=== PATIENT | male | born 1960 | race Caucasian/White ===

== ENCOUNTER 2020-10-27 07:24 | Emergency (ER) | payer OTHER, SELFPAY ==
--- NOTE | ~2020-10-27 | XR_ITS ---
EXAMINATION: XR CHEST CLINICAL INFORMATION: Shortness of breath COMPARISON: Chest 04/26/2019 TECHNIQUE: Frontal view of the chest was obtained. FINDINGS: There is cardiomegaly. There is increased pulmonary vascularity suggestive of mild congestion. There are pacer electrodes in right atrium and right ventricle. No gross bony abnormality seen. XR/XR chest 1V IMPRESSION: Cardiomegaly. Mild pulmonary vascular congestion.
[2020-10-27 07:31] VITALS: BP 138/101; BP 165/105; PULSE 77; PULSE 93; RESP 14; TEMP 37.1; O2SAT 93; O2SAT 97; BMI 40.4
--- NOTE | 2020-10-27 07:37 | ED_ITS ---
HPI - Extremity Injury (Lower) General Chief Complaint: General Medical Stated Complaint: R KNEE PAIN/SWELLING FOR DAYS. NON WT BEARING Time Seen by Provider: 10/27/20 07:37 Source: patient Mode of arrival: EMS Limitations: no limitations History of Present Illness HPI Narrative: Knee swelling for few days, no redness, no fever. Patient with a history of gout and prior swelling Exacerbating factors: weight bearing Associated symptoms: swelling Related Data Home Medications Medication Instructions Recorded Confirmed carvedilol 25 mg tablet 25 mg PO BID 09/05/20 Previous Rx's Medication Instructions Recorded amoxicillin 875 mg-potassium 1 tab PO BID 7 Days #14 tab 09/05/20 clavulanate 125 mg tablet esiozopo-eoiddwomf-slnzzstnz 3.5 4 drp OTIC (EAR) RIGHT QID 10 Days 09/05/20 mg/mL-10,000 unit/mL-1 % ear #10 ml solution colchicine [Colcrys] 0.6 mg PO BID #20 tab 10/27/20 naproxen [Naprosyn] 500 mg PO BID #20 tab 10/27/20 Allergies Allergy/AdvReac Type Severity Reaction Status Date / Time No Known Allergies Allergy Unverified 09/11/20 11:26 [No Known Allergies*] Review of Systems Constitutional: Constitutional: Reports no additional constitutional complaints Eyes: Eyes: Reports no additional eye complaints ENT: Denies dizziness Cardiovascular: Cardiovascular: Reports no additional cardiovascular complaints Respiratory: Respiratory: Reports as per HPI Gastrointestinal: Gastrointestinal: Reports no additional gastrointestinal complaints Musculoskeletal: Musculoskeletal: Reports no additional musculoskeletal complaints Integumentary/Breasts: Skin/Breast: Denies rash Neurologic: Reports system reviewed and no additional complaints, except as documented, Denies dizziness and Denies Sensory deficit (Neuro) Psychiatric: Psychiatric: Denies anxiety COUNT INCLUDES THE [facility] Social History Social History Alcohol intake: current Alcohol intake frequency: a few times a month Alcohol type: beer Smoking Status: Never smoker Use of substances other than those prescribed or required for medical reasons: No Advance Directives: No Advance Directives Information Provided: No Physical Exam Vital Signs: Vital Signs: Last Vital Signs Temp 98.7 F 10/27/20 07:31 Pulse 82 10/27/20 12:09 Resp 18 10/27/20 12:09 BP 151/111 H 10/27/20 12:09 Pulse Ox 97 10/27/20 12:09 Oxygen Flow Rate 2 10/27/20 07:31 Body Mass Index 40.4 Const: Other: unkept obese Orientation/consciousness: oriented to person and patient oriented x3 Limitations: no limitations HENMT: Head: Yes normal to inspection Ears: external ears normal General nose exam: Normal external nose present Mouth: Normal oral and palatal mucosa present and oropharynx normal Throat: Yes posterior oropharynx normal Eyes: General: appearance normal, both eyes and all related structures Neck: Other: supple Neck: Yes normal visual inspection Chest: Chest palpation & inspection: normal inspection of the chest Resp: Auscultation: clear to auscultation bilaterally Cardio: Jugular venous distension: no JVD Rate: regular rate Rhythm: regular rhythm Heart sounds: S1 normal heart sound present and S2 normal heart sound present GI: Inspection: Yes normal to inspection Palpation (GI): Soft to palpation, nontender and No hepatosplenomegaly present Auscultation: normal bowel sounds : General: Yes no CVA tenderness Back/Spine/Pelvis: Back: no CVA tenderness Skin: General skin exam: no rashes or lesions noted Neuro: General: oriented to person and patient oriented x3 Cranial nerves: Yes CN's II-XII intact bilaterally Motor exam (neuro): 5/5 motor strength present throughout Sensory Exam: No Sensory deficit (Neuro) Extrem: Other: bilateral 3+ edema, right knee with large effusion, no erythem Psych: Appearance: grossly normal Course Course Course Narrative: patient with gout on tap, seen and cleared by Pt and Case management Procedures Procedure Narrative Procedure Narrative: patient prepped and draped in sterile fashion, 1% lido with epi used for anesthesia. 60cc of slightly cloudy synovial fluid removed from knee. Sent to lab for culture and CBC and crystals MDM - Extremity Injury (Lower) Lab Data Result diagrams: 10/27/20 08:13 10/27/20 08:13 Labs: Lab Results 10/27/20 10/27/20 10/27/20 Range/Units 08:13 08:13 08:13 WBC 14.4 H (4.8-10.8) X10*3/uL RBC 5.95 H (4.60-5.80) X10*6/uL Hgb 18.0 (14.0-18.0) g/dl Hct 54.2 H (42-52) % MCV 91.1 (80-98) fL MCH 30.3 (27.0-33.0) pg MCHC 33.2 (31.0-36.0) g/dl RDW 14.1 (11.0-16.0) % Plt Count 205 (160-400) X10*3/uL MPV 10.1 (9.4-12.4) fL Immature Gran % (Auto) 0.4 (0.0-0.4) % Neut % (Auto) 80.9 H (45-73) % Lymph % (Auto) 8.9 L (20-40) % [place] % (Auto) 9.2 (2-11) % Eos % (Auto) 0.4 (0-4) % Baso % (Auto) 0.2 (0-2) % Lymph # (Auto) 1.3 (1.2-4.9) X10*3/uL [place] # (Auto) 1.3 H (0.1-1.2) X10*3/uL Eos # (Auto) 0.1 (0.0-0.4) X10*3/uL Baso # (Auto) 0.0 (0.0-0.2) X10*3/uL Abs Immat Gran (auto) 0.06 H (0.00-0.03) X10*3/uL Absolute Neuts (auto) 11.7 H (2.0-8.3) X10*3/uL Absolute Nucleated RBC 0.000 (0.0-0.012) X10*3/uL Nucleated RBC % (auto) 0.0 (0.0-0.2) /100WBC Sodium 138 (135-145) mmol/L Potassium 4.0 (3.3-5.1) mmol/L Chloride 97 (96-108) mmol/L Carbon Dioxide 30 H (22-29) mmol/L Anion Gap 15 (12-20) BUN 19 H (9-16) mg/dL Creatinine 1.31 (0.5-1.4) mg/dL Estim Creat Clear Calc 80.5 Estimated GFR 56 Random Glucose 131 H (60-115) mg/dL Calcium 8.8 (8.4-10.2) mg/dL Troponin I High Sens (<3.5-35.0) ng/L B-Natriuretic Peptide 138 H (<100) pg/mL Synovial Source Synovial WBC X10*3/uL Synovial RBC X10*6/uL Synovial Neutrophils % Synovial Lymphocytes % Synovial Monocytes % 10/27/20 10/27/20 Range/Units 08:13 10:48 WBC (4.8-10.8) X10*3/uL RBC (4.60-5.80) X10*6/uL Hgb (14.0-18.0) g/dl Hct (42-52) % MCV (80-98) fL MCH (27.0-33.0) pg MCHC (31.0-36.0) g/dl RDW (11.0-16.0) % Plt Count (160-400) X10*3/uL MPV (9.4-12.4) fL Immature Gran % (Auto) (0.0-0.4) % Neut % (Auto) (45-73) % Lymph % (Auto) (20-40) % [place] % (Auto) (2-11) % Eos % (Auto) (0-4) % Baso % (Auto) (0-2) % Lymph # (Auto) (1.2-4.9) X10*3/uL [place] # (Auto) (0.1-1.2) X10*3/uL Eos # (Auto) (0.0-0.4) X10*3/uL Baso # (Auto) (0.0-0.2) X10*3/uL Abs Immat Gran (auto) (0.00-0.03) X10*3/uL Absolute Neuts (auto) (2.0-8.3) X10*3/uL Absolute Nucleated RBC (0.0-0.012) X10*3/uL Nucleated RBC % (auto) (0.0-0.2) /100WBC Sodium (135-145) mmol/L Potassium (3.3-5.1) mmol/L Chloride (96-108) mmol/L Carbon Dioxide (22-29) mmol/L Anion Gap (12-20) BUN (9-16) mg/dL Creatinine (0.5-1.4) mg/dL Estim Creat Clear Calc Estimated GFR Random Glucose (60-115) mg/dL Calcium (8.4-10.2) mg/dL Troponin I High Sens 17.4 (<3.5-35.0) ng/L B-Natriuretic Peptide (<100) pg/mL Synovial Source knee Synovial WBC 28.602 X10*3/uL Synovial RBC 0.002 X10*6/uL Synovial Neutrophils 97 % Synovial Lymphocytes 2 % Synovial Monocytes 1 % ECG Data Attestation: I personally reviewed and interpreted this ECG as follows: Interpretation: Atrial fibrillation/flutter rate 80, no st or twave changes Discharge Plan Discharge Clinical Impression: Gout attack Qualifiers: Gout site: knee Gout etiology: unspecified cause Laterality: right Qualified Code(s): M10.9 - Gout, unspecified Patient Disposition: Home, Self-Care Instructions: Gout (ED) Prescriptions: New colchicine [Colcrys] 0.6 mg tablet 0.6 mg PO BID Qty: 20 RF: 0 naproxen [Naprosyn] 500 mg tablet 500 mg PO BID Qty: 20 RF: 0 No Action carvedilol 25 mg tablet 25 mg PO BID RF: 0 nwykleji-nigsvdkcl-CK 3.5-10,000-1 mg/mL-unit/mL-% solution 4 drp otic (ear) right QID 10 Days Qty: 10 RF: 0 amoxicillin-pot clavulanate [Augmentin] 875-125 mg tablet 1 tab PO BID 7 Days Qty: 14 RF: 0 Referrals: Sam Candelario MD [Primary Care Provider] - 1 week
--- NOTE | 2020-10-27 07:41 | ECG_ITS ---
Test Reason : CHF Blood Pressure : / mmHG Vent. Rate : 079 BPM Atrial Rate : 055 BPM P-R Int : 000 ms QRS Dur : 102 ms QT Int : 410 ms P-R-T Axes : 000 000 127 degrees QTc Int : 470 ms Atrial fibrillation with occasional ventricular-paced complexes Minimal voltage criteria for LVH, may be normal variant Cannot rule out Inferior infarct , age undetermined Cannot rule out Anterior infarct , age undetermined ST & T wave abnormality, consider lateral ischemia Abnormal ECG When compared with ECG of 26-APR-2019 13:42, Vent. rate has decreased BY 4 BPM Referred By: Otf Oconnor Electronically Signed By:JULIENNE MCRAE MD
[2020-10-27] MEDS: Ketorolac Tromethamine 30 MG/ML VIAL IVPUSH (08:14)
[2020-10-27] MEDS: Furosemide 40 MG/4 ML VIAL IVPUSH (08:14)
[2020-10-27] MEDS: Colchicine 0.6 MG TABLET 1.2 MG PO (08:15)
[2020-10-27 08:17] VITALS: BP 122/92
[2020-10-27 08:20] LABS: MANUAL DIFF FLAG NO
[2020-10-27 08:22] LABS: Basophils Percent Auto 0.2 % (0-2); Eosinophils Absolute Auto 0.1 X10*3/uL (0.0-0.4); Eosinophils Percent Auto 0.4 % (0-4); Hematocrit 54.2 % (42-52); Imm Gran Abs Auto 0.06 X10*3/uL (0.00-0.03); Imm Gran Pct Auto 0.4 % (0.0-0.4); Lymphocytes Absolute Auto 1.3 X10*3/uL (1.2-4.9); Lymphocytes Percent Auto 8.9 % (20-40); Mean Corpuscular HGB Conc 33.2 g/dl (31.0-36.0); Mean Corpuscular Hemoglobin 30.3 pg (27.0-33.0); Mean Corpuscular Volume 91.1 fL (80-98); Mean Platelet Volume 10.1 fL (9.4-12.4); Monocytes Absolute Auto 1.3 X10*3/uL (0.1-1.2); Monocytes Percent Auto 9.2 % (2-11); Neutrophils Absolute Auto 11.7 X10*3/uL (2.0-8.3); Neutrophils Percent Auto 80.9 % (45-73); Platelet Count 205 X10*3/uL (160-400); Red Blood Count 5.95 X10*6/uL (4.60-5.80); Red Cell Distribution Width 14.1 % (11.0-16.0); White Blood Count 14.4 X10*3/uL (4.8-10.8)
[2020-10-27 08:44] LABS: Anion Gap 15 (12-20); Blood Urea Nitrogen 19 mg/dL (9-16); Calcium 8.8 mg/dL (8.4-10.2); Carbon Dioxide 30 mmol/L (22-29); Chloride 97 mmol/L (96-108); Creatinine Clr Calc Pharmacy 80.5; Estimated Glomerular Filt Rate 56; Glucose Random 131 mg/dL (60-115); Sodium 138 mmol/L (135-145)
[2020-10-27 08:45] VITALS: BP 142/79; PULSE 86; RESP 20; O2SAT 96
[2020-10-27 08:49] LABS: B Type Natriuretic Peptide 138 pg/mL (<100); Troponin-I High Sensitivity 17.4 ng/L (<3.5-35.0)
[2020-10-27 10:54] LABS: Source Synovial Fluid knee
[2020-10-27 11:19] LABS: MN% 8.9 %; PMN% 91.1 %; RBC Synovial Fluid 0.002 X10*6/uL
[2020-10-27 11:38] LABS: BF Shift QC OK YES; Lymphocytes Synovial Fluid 2 %; Man Diluent Bkgrd OK YES; Monocytes Synovial Fluid 1 %; Neutrophils Synovial Fluid 97 %
[2020-10-27 11:56] VITALS: BP 142/79; PULSE 86; O2SAT 96
[2020-10-27 12:09] VITALS: BP 151/111; PULSE 82; RESP 18; O2SAT 97
[2020-10-27] MEDS: ondansetron HCL 4 MG/2 ML VIAL IVPUSH (12:45)
--- NOTE | 2020-10-27 17:54 | MHC.CM.ED ---
CM met with patient. Pt only has [facility] insurance. Lives with girlfriend. Has no services and uses a cane. Has home O2, which he uses prn. Had Moderna vaccine x2. Last injection in September. STR recommends STR, pt refuses and will agree to home PT only. Informed pt that CM would call our [facility] Liason, Elena Frausto RN to assess his service eligibility. Pt asks that he be discharged, as he has a short window for a ride home. [place] LEA aware.
--- NOTE | 2020-10-27 17:58 | MHC.CM.ED ---
CM spoke with Elena Frausto RN [facility] liason. Pt is not eligible for rehab/LTC under his benefits, unless he has private insurance. Pt does not have private insurance. Elena suggested that pt f/u with his PCP and they can recommend home PT for him and then the [facility] will pay. Will fax ED H&P and PT consult to Dr. Sam Candelario ([phone]). Pt aware that information faxed to PCP. Has appointment on November 19.
[2020-10-30 22:16] LABS: Lyme PCR Source SYNOVIAL FLUID; Lyme Synovial Fluid PCR NOT DETECTED (NOT DETECTED)
== END 2020-10-27 16:00 | disposition home or self-care (01) ==
PROVIDERS: Emergency Provider Emergency Medicine; PCP Internal Medicine Endocrinology, Diabetes & Metabolism
DX: M10.9 Gout, unspecified (principal); M25.561 Pain in right knee; M25.461 Effusion, right knee
CPT/HCPCS: 20610; 36415; 71045; 80048; 83880; 84484; 85025; 87071; 87073; 87205; 87476; 89051; 89060; 93005; 96374; 96375; 97162; 99284; 99285; J1885; J1940; J2405

== ENCOUNTER 2021-06-06 11:54 | Emergency (ER) | payer OTHER, SELFPAY ==
--- NOTE | ~2021-06-06 | XR_ITS ---
EXAMINATION: XR CHEST CLINICAL INFORMATION: Chest pain COMPARISON: Chest x-ray on 10/27/2020 TECHNIQUE: 2 views of the chest were obtained. FINDINGS: The cardiomediastinal silhouette is enlarged but stable. There is a left chest 2-lead ICD. No areas of consolidation. No pleural effusion. XR/XR chest 2V IMPRESSION: No acute disease.
--- NOTE | 2021-06-06 11:55 | ECG_ITS ---
Test Reason : CHEST PAIN Blood Pressure : / mmHG Vent. Rate : 085 BPM Atrial Rate : 000 BPM P-R Int : 000 ms QRS Dur : 106 ms QT Int : 404 ms P-R-T Axes : 000 007 128 degrees QTc Int : 480 ms Atrial fibrillation with occasional ventricular-paced complexes Cannot rule out Anterior infarct , age undetermined Abnormal ECG When compared with ECG of 27-OCT-2020 07:53, Vent. rate has increased BY 6 BPM Referred By: Generic ED Physician Electronically Signed By:Clive Choi
== END 2021-06-06 19:37 | disposition left against medical advice (07) ==
PROVIDERS: Emergency Provider Emergency Medicine; PCP Nurse Practitioner Family
DX: R07.9 Chest pain, unspecified (principal)
CPT/HCPCS: 71046; 93005; 99281; 99283

== ENCOUNTER 2024-11-23 21:24 | Inpatient (IN) | payer OTHER, SELFPAY ==
--- NOTE | ~2024-11-23 | XR_ITS ---
CLINICAL HISTORY: Severe shortness on breath Chest Radiograph Comparison: 11/23/24 Findings: Cardiomegaly status post left chest wall cardiac pacemaker/AICD. Normal mediastinal contours. No pneumothorax. Retrocardiac opacity could be considered, less apparent than on the prior study. No pleural effusion. Normal upper abdomen. No acute fracture. Impression: Retrocardiac opacity is less apparent than on the prior study. Pneumonia could be considered. This document has been electronically signed by: Ashley Duran MD on 11/24/2024 20:26:15
--- NOTE | ~2024-11-23 | US_ITS ---
EXAMINATION: US TRIPLEX LOWER EXTREMITY, BILATERAL CLINICAL INFORMATION: Edema, lower extremity. COMPARISON: None available. TECHNIQUE: Color-flow triplex imaging with spectral analysis and compression Doppler were performed on the bilateral lower extremities. FINDINGS: Respiratory variation, normal compression and augmented flow are present in the interrogated common femoral vein, superficial femoral vein, profunda femoral vein, popliteal vein and midcalf peroneal and posterior tibial venous segments , bilaterally. There is no Waters's cyst. US/US venous duplex LE BI IMPRESSION: No acute deep venous thrombosis interrogated veins, bilateral lower extremities. Negative for DVT. Electronically signed by: Augusto Eddy MD 11/25/2024 01:09 PM EDT
--- NOTE | ~2024-11-23 | XR_ITS ---
CLINICAL HISTORY: shortness of breath 1 view chest x-ray Comparison: None Findings: Left basilar opacity with probable effusion. Cardiomegaly. Left subclavian AICD. No acute fracture. IMPRESSION: Probable left pleural effusion. Left basilar opacity also noted which could be a consolidation. Recommend follow-up to clearing. This document has been electronically signed by: Danna Guillen MD on 11/23/2024 22:16:30
[2024-11-23 21:36] VITALS: BP 109/77; BP 157/120; PULSE 72; PULSE 88; RESP 24; O2SAT 98; BMI 42.4
[2024-11-23 21:50] VITALS: TEMP 36.2; O2SAT 96
--- NOTE | 2024-11-23 21:56 | ECG_ITS ---
Test Reason : SOB Blood Pressure : */* mmHG Vent. Rate : 71 BPM Atrial Rate : * BPM P-R Int : * ms QRS Dur : 110 ms QT Int : 478 ms P-R-T Axes : * 109 112 degrees QTcB Int : 519 ms Atrial fibrillation with occasional ventricular-paced complexes Rightward axis Low voltage QRS Cannot rule out Anterior infarct , age undetermined Prolonged QT Abnormal ECG When compared with ECG of 06-Jun-2021 11:59, Vent. rate has decreased by 14 bpm Referred By: Generic ED Physician Electronically Signed By: JULIENNE MCRAE MD
--- NOTE | 2024-11-23 22:00 | PC.NURSE ---
Addendum entered by Cresencio Amin RN 11/23/24 22:23: states to MD that black toe has been like that for years Original Note: black left fourth toe. red, edematous, weeping legs. abd distended, nontender, denies CP, SpO2 96% on RA now. afib rate 70s. obtaining ekg and labs now. pt is calm, alert and oriented. ambulates at home, works in yard. from home with girlfriend. call pal in reach
[2024-11-23 22:08] VITALS: PULSE 74; RESP 17; O2SAT 95
--- NOTE | 2024-11-23 22:16 | ED.SOB ---
HPI - SOB/Dyspnea General Chief Complaint: Dyspnea Stated Complaint: SOB Time Seen by Provider: 11/23/24 22:16 Source: patient Mode of arrival: ambulatory Limitations: no limitations History of Present Illness ED Provider: HPI Narrative: Patient's comes here history of increased shortness of breath with history of CHF poor ejection fraction AFib not on anticoagulation per patient choice does have home oxygen uses 2 LPM as needed for last 1 week patient has been noticing increased shortness a breath saturation dropping in 80s when ambulating at rest was 94% denies any chest pain has noticed the legs are more swollen and weeping now and has decreased urine output for last 2 -3 days . Patient has been fairly compliant to his medication taking furosemide 40 mg daily denies any chest pain Related Data Home Medications ?Medication ?Instructions ?Recorded ?Confirmed carvedilol 25 mg tablet 25 mg PO BID 09/05/20 Previous Rx's ?Medication ?Instructions ?Recorded amoxicillin 875 mg-potassium 1 tab PO BID 7 days #14 tabs 09/05/20 clavulanate 125 mg tablet (Augmentin) hfspbxba-remwabxzw-pdvpcstnf 3.5 4 drp otic (ear) right QID 10 days 09/05/20 mg/mL-10,000 unit/mL-1 % ear #10 mL solution colchicine 0.6 mg tablet (Colcrys) 0.6 mg PO BID #20 tabs 10/27/20 naproxen 500 mg tablet (Naprosyn) 500 mg PO BID #20 tabs 10/27/20 Allergies Allergy/AdvReac Type Severity Reaction Status Date / Time No Known Allergies Allergy Verified 11/23/24 21:49 [No Known Allergies*] Review of Systems Review of Systems: Yes all other systems are reviewed and are negative [facility] Social History Social History Alcohol intake: current Alcohol intake frequency: holidays/special occasions only Alcohol type: beer Smoked in Last 30 Days: No Use of substances other than those prescribed or required for medical reasons: No Advance Directives: No Advance Directives Information Provided: Yes Do you have a plan to hurt others: No Plan Physical Exam Vital Signs: Vital Signs: Last Vital Signs Temp 97.2 F 11/23/24 21:50 Pulse 70 11/23/24 23:30 Resp 17 11/23/24 23:30 BP 104/75 11/23/24 23:47 Pulse Ox 97 11/23/24 23:30 O2 Del Method Room Air 11/23/24 23:30 O2 Flow Rate 3 11/23/24 21:50 BMI result Body Mass Index 42.4 Appearance: Alert. Oriented X3. No acute distress. Eyes: No pallor or icterus ENT: Pharynx normal. Oral Mucosa moist Neck: Normal inspection. Neck supple. CVS: Irregularly irregular heart rate. Pulses normal. Respiratory: No respiratory distress. Equal air entry bilateral, decreased air entry bilaterally with few crackles Abdomen: Soft and nontender. Bowel sounds are present, no mass palpable, no CVA tenderness Skin: Skin warm and dry. Normal skin color. Normal skin turgor. Extremities: 3+ lower extremity edema with weeping chronic dermatitis changes. No calf tenderness Neuro: Oriented X 3. No motor deficit. No sensory deficit.No cerebellar signs , cranial nerves II-XII intact Medications Administered Discontinued Medications Generic Name Dose Route Start Last Admin Trade Name Freq PRN Reason Stop Dose Admin Furosemide 20 mg 11/23/24 22:29 11/23/24 22:35 Furosemide 40 Mg/4 Ml Vial IVPUSH 11/23/24 22:30 20 mg ONCE ONE Administration Protocol Furosemide 20 mg 11/23/24 23:32 11/23/24 23:47 Furosemide 20 Mg/2 Ml Vial IVPUSH 11/23/24 23:33 20 mg ONCE ONE Administration Protocol Medical Decision Making Medical Decision Making [facility] Narrative: Patient with AFib with congestive heart failure with poor ejection fraction comes here for increased shortness a breath for last 1 week lab workup showed elevated BNP chest x-ray showed pulmonary congestion will admit patient for IV diuresis. Differential Diagnosis Differential Diagnoses: The differential diagnosis associated with the presentation includes CHF/ACS Admission/Observation Consideration of admission/observation: Escalation of care including admission/observation considered Consult Healthcare Provider Management of the patient was discussed with: Hospitalist Lab Data [facility] Lab Attestation statement: I reviewed the patient's lab results. 11/23/24 22:16 11/23/24 22:16 Labs: Lab Results 11/23/24 Range/Units 22:16 WBC 8.1 (4.8-10.8) X10*3/uL RBC 5.90 H (4.60-5.80) X10*6/uL Hgb 17.7 (14.0-18.0) g/dl Hct 53.7 H (42.0-52.0) % MCV 91.0 (80.0-98.0) fL MCH 30.0 (27.0-33.0) pg MCHC 33.0 (31.0-36.0) g/dl RDW 14.9 (11.0-16.0) % Plt Count 193 (160-400) X10*3/uL MPV 10.9 (9.4-12.4) fL Immature Gran % (Auto) 0.4 (0.0-0.4) % Neut % (Auto) 72.0 (45-73) % Lymph % (Auto) 18.0 L (20-40) % [place] % (Auto) 8.4 (2-11) % Eos % (Auto) 0.7 (0-4) % Baso % (Auto) 0.5 (0-2) % Lymph # (Auto) 1.5 (1.2-4.9) X10*3/uL [place] # (Auto) 0.7 (0.1-1.2) X10*3/uL Eos # (Auto) 0.1 (0.0-0.4) X10*3/uL Baso # (Auto) 0.0 (0.0-0.2) X10*3/uL Abs Immat Gran (auto) 0.03 (0.00-0.03) X10*3/uL Absolute Neuts (auto) 5.8 (2.0-8.3) x10*3/uL Absolute Nucleated RBC 0.000 (0.0-0.012) X10*3/uL Nucleated RBC % (auto) 0.0 (0.0-0.2) /100WBC PT 15.1 H (10.9-12.4) SEC INR 1.3 H (0.9-1.1) Sodium 139 (135-145) mmol/L Potassium 4.8 (3.3-5.1) mmol/L Chloride 106 (96-108) mmol/L Carbon Dioxide 23 (22-29) mmol/L Anion Gap 15 (12-20) BUN 36 H (9-16) mg/dL Creatinine 1.83 H (0.5-1.4) mg/dL Estim Creat Clear Calc 55.4 Estimated GFR 37 Random Glucose 123 H (60-115) mg/dL Calcium 8.6 (8.4-10.2) mg/dL Total Bilirubin 1.6 H (0.0-1.0) mg/dL AST 34 (5-37) U/L ALT 23 (0-40) U/L Alkaline Phosphatase 62 (39-117) U/L Troponin I High Sens 38.3 H (<3.5-35.0) ng/L B-Natriuretic Peptide 792 H (<100) pg/mL Total Protein 7.0 (6.5-8.0) g/dL Albumin 3.4 L (3.5-5.0) g/dL Influenza Type A (PCR) NEGATIVE (Negative) Influenza Type B (PCR) NEGATIVE (Negative) RSV RNA Qual (PCR) NEGATIVE (Negative) SARS-CoV-2 RNA (RT-PCR) NEGATIVE (Negative) Independent Interpretation I performed an independent interpretation of an: EKG Interpretation: Atrial fibrillation with heart rate 71 beats per minute rightward axis no acute ST elevation no acute ischemia Radiology Impression Discussion of test interpretation with radiology: I have reviewed the radiologist's reading. Radiologist Impression: [place] [id number] XRay Report Signed Patient: Maurice Lockwood MR#: [id number] : 1960 Acct:[id number] Age/Sex: 64 / M ADM Date: 11/23/24 Loc: .ED Attending Dr: Ordering Physician: Asif Estrada MD Date of Service: 11/23/24 Procedure(s): XR chest 1V Accession Number(s): [id number] cc: Physician,Unknown ; Asif Estrada MD~ CLINICAL HISTORY: shortness of breath 1 view chest x-ray Comparison: None Findings: Left basilar opacity with probable effusion. Cardiomegaly. Left subclavian AICD. No acute fracture. IMPRESSION: Probable left pleural effusion. Left basilar opacity also noted which could be a consolidation. Recommend follow-up to clearing. This document has been electronically signed by: Danna Guillen MD on 11/23/2024 22:16:30 Discharge Plan Discharge Clinical Impression: Congestive heart failure, Atrial fibrillation with controlled ventricular response Patient Disposition: Admitted As Inpatient Print Language: Tongan
[2024-11-23 22:20] VITALS: BP 112/69; PULSE 74; RESP 13; O2SAT 94
[2024-11-23 22:20] LABS: MANUAL DIFF FLAG NO
[2024-11-23 22:27] LABS: Basophils Percent Auto 0.5 % (0-2); Eosinophils Absolute Auto 0.1 X10*3/uL (0.0-0.4); Eosinophils Percent Auto 0.7 % (0-4); Hematocrit 53.7 % (42.0-52.0); Hemoglobin 17.7 g/dl (14.0-18.0); Imm Gran Abs Auto 0.03 X10*3/uL (0.00-0.03); Imm Gran Pct Auto 0.4 % (0.0-0.4); Lymphocytes Absolute Auto 1.5 X10*3/uL (1.2-4.9); Mean Platelet Volume 10.9 fL (9.4-12.4); Monocytes Absolute Auto 0.7 X10*3/uL (0.1-1.2); Monocytes Percent Auto 8.4 % (2-11); Neutrophils Absolute Auto 5.8 x10*3/uL (2.0-8.3); Platelet Count 193 X10*3/uL (160-400); Red Cell Distribution Width 14.9 % (11.0-16.0); White Blood Count 8.1 X10*3/uL (4.8-10.8)
[2024-11-23 22:32] LABS: INTERNATIONAL NORM RATIO 1.3 (0.9-1.1); Prothrombin Time 15.1 SEC (10.9-12.4)
[2024-11-23] MEDS: Furosemide 40 MG/4 ML VIAL 20 MG IVPUSH (22:35)
[2024-11-23 22:40] LABS: Alanine Aminotransferase 23 U/L (0-40); Albumin Level 3.4 g/dL (3.5-5.0); Alkaline Phosphatase 62 U/L (39-117); Anion Gap 15 (12-20); Aspartate Amino Transferase 34 U/L (5-37); Bilirubin Total 1.6 mg/dL (0.0-1.0); Blood Urea Nitrogen 36 mg/dL (9-16); Calcium 8.6 mg/dL (8.4-10.2); Carbon Dioxide 23 mmol/L (22-29); Chloride 106 mmol/L (96-108); Creatinine Clr Calc Pharmacy 55.4; Estimated Glomerular Filt Rate 37; Glucose Random 123 mg/dL (60-115); Potassium 4.8 mmol/L (3.3-5.1); Sodium 139 mmol/L (135-145)
[2024-11-23 22:44] LABS: B Type Natriuretic Peptide 792 pg/mL (<100); Troponin-I High Sensitivity 38.3 ng/L (<3.5-35.0)
[2024-11-23 23:30] VITALS: BP 107/84; PULSE 70; RESP 17; O2SAT 97
[2024-11-23 23:47] VITALS: BP 104/75
[2024-11-23] MEDS: Furosemide 20 MG/2 ML VIAL IVPUSH (23:47)
[2024-11-24] VITALS (10 sets, daily range): BP systolic 98–147; BP diastolic 79–125; PULSE 60–91; RESP 14–22; TEMP 35.8–36.8; O2SAT 95–98
--- NOTE | 2024-11-24 | ECG_ITS ---
Test Reason : Shortness on breath, diaphoresis Blood Pressure : */* mmHG Vent. Rate : 86 BPM Atrial Rate : * BPM P-R Int : * ms QRS Dur : 108 ms QT Int : 420 ms P-R-T Axes : * 65 55 degrees QTcB Int : 502 ms Atrial fibrillation Low voltage QRS Cannot rule out Anterior infarct , age undetermined Prolonged QT Abnormal ECG When compared with ECG of 23-Nov-2024 21:58, Atrial fibrillation has replaced Electronic ventricular pacemaker Referred By: Trinidad Belcher Electronically Signed By: Clive Choi
[2024-11-24 00:04] LABS: Influenza A PCR NEGATIVE (Negative); Influenza B PCR NEGATIVE (Negative); Resp Syncy Virus RNA Qual PCR NEGATIVE (Negative); SARS COV2 PCR INHOUSE NEGATIVE (Negative)
--- NOTE | 2024-11-24 00:17 | PC.NURSE ---
attempted to ambulate with walker to bathroom. pt made it [address] before stating he was too fatigued + dyspneic and needed a wheelchair. SpO2 96%, HR 70s, RR 26.
--- NOTE | 2024-11-24 00:43 | P.HPHOSP_ITS ---
History of Present Illness Date of Service: 11/24/24 Chief Complaint: Dyspnea This is a 64-year-old male with pertinent history of congestive heart failure with reduced ejection fraction, AFib not on anticoagulation who presents to the emergency department for evaluation of dyspnea. Patient states he has had progressive dyspnea that has been ongoing for the last 1 week. Dyspnea is worse with exertion and worse when lying flat. Also reports PND. Patient also noticed that his bilateral lower extremity have been swollen. No cough, fever or chills. No chest pain or palpitations. No abdominal pain, changes in bowel habits. In the emergency department, BNP found to be elevated and imaging with cardiomegaly and opacities concerning for edema. Also found to have MODESTA with creatinine 1.83 Review of Systems 2 Constitutional: Constitutional: Reports fatigue and Reports malaise Cardiovascular: Cardiovascular: Reports dyspnea on exertion, Reports orthopnea and Reports paroxysmal nocturnal dyspnea Respiratory: Respiratory: Reports dyspnea on exertion Gastrointestinal: Gastrointestinal: Reports no additional gastrointestinal complaints Endocrine: Endocrine: Reports fatigue [facility] Medical History Atrial fibrillation Systolic heart failure Pertinent family history: No family history of early CAD Social History Alcohol intake: current Alcohol intake frequency: holidays/special occasions only Alcohol type: beer Smoked in Last 30 Days: No Use of substances other than those prescribed or required for medical reasons: No Advance Directives: No Advance Directives Information Provided: Yes Do you have a plan to hurt others: No Plan Meds Allergies Allergy/AdvReac Type Severity Reaction Status Date / Time No Known Allergies Allergy Verified 11/23/24 21:49 [No Known Allergies*] Home Medications ?Medication ?Instructions ?Recorded ?Confirmed ?Last Taken ?Type carvedilol 25 mg tablet 25 mg PO BID 09/05/20 Unknown History Physical Exam 2 Vital Signs and Narrative: Vital Signs: Last Vital Signs Temp 96.9 F 11/24/24 00:28 Pulse 91 11/24/24 00:28 Resp 20 11/24/24 00:28 BP 113/84 11/24/24 00:28 Pulse Ox 95 11/24/24 00:28 O2 Del Method Room Air 11/24/24 00:28 O2 Flow Rate 3 11/23/24 21:50 BMI result Body Mass Index 42.4 Middle-aged male lying in bed in no distress Neck supple Regular rate and rhythm, S1-S2 heard Bilateral crackles appreciated, no wheezing Abdomen soft nontender, no guarding, no rigidity Patient is awake, alert and oriented to self, place, time and person ; no focal motor deficit Psych: Normal mood Bilateral pedal edema with venous stasis changes Results Labs 11/23/24 22:16 11/23/24 22:16 Labs: Laboratory Results - last 24 hr 11/23/24 22:16 MCV 91.0 MCH 30.0 MCHC 33.0 RDW 14.9 Plt Count 193 MPV 10.9 Immature Gran % (Auto) 0.4 Neut % (Auto) 72.0 Lymph % (Auto) 18.0 L [place] % (Auto) 8.4 Eos % (Auto) 0.7 Baso % (Auto) 0.5 Lymph # (Auto) 1.5 [place] # (Auto) 0.7 Eos # (Auto) 0.1 Baso # (Auto) 0.0 Abs Immat Gran (auto) 0.03 Absolute Neuts (auto) 5.8 Absolute Nucleated RBC 0.000 Nucleated RBC % (auto) 0.0 PT 15.1 H INR 1.3 H Anion Gap 15 Estim Creat Clear Calc 55.4 Estimated GFR 37 Random Glucose 123 H Calcium 8.6 Total Bilirubin 1.6 H AST 34 ALT 23 Alkaline Phosphatase 62 Troponin I High Sens 38.3 H B-Natriuretic Peptide 792 H Total Protein 7.0 Albumin 3.4 L Influenza Type A (PCR) NEGATIVE Influenza Type B (PCR) NEGATIVE RSV RNA Qual (PCR) NEGATIVE SARS-CoV-2 RNA (RT-PCR) NEGATIVE Assessment and Plan (1) Congestive heart failure: Status: Acute (2) Acute kidney injury: Status: Acute Plan This is a 64-year-old male with pertinent history of congestive heart failure with reduced ejection fraction, AFib not on anticoagulation who presents to the emergency department for evaluation of dyspnea. #. Acute on chronic congestive heart failure with reduced ejection fraction: Will admit patient with IV diuresis. Strict I's and O's. Low-salt diet. Obtaining echo. #. Acute kidney injury stage I, cardiorenal in the setting of above: Monitor with diuresis #. Atrial fibrillation: Rate controlled at the time of admission. On beta- violeta. Not on anticoagulation #. Bilateral lower extremity venous stasis: [facility] Med rec pending DVT prophylaxis: Lovenox Full code. Discussed with patient at bedside Admit as inpatient and will require two night minimum hospital stay for IV diuresis, monitoring of kidney function (as above), which is not possible in a lesser acute setting. Quality Stroke Does the patient have a stroke diagnosis?: No VTE Prior VTE?: No VTE Risk Level:: Medical - moderate - high VTE Device Contraindication: Treatment Not Indicated VTE Drug Contraindication: N/A - Med Ordered
[2024-11-24 02:44] LABS: MANUAL DIFF FLAG NO
[2024-11-24 02:48] LABS: Basophils Percent Auto 0.5 % (0-2); Eosinophils Absolute Auto 0.1 X10*3/uL (0.0-0.4); Eosinophils Percent Auto 0.9 % (0-4); Hematocrit 50.5 % (42.0-52.0); Hemoglobin 17.1 g/dl (14.0-18.0); Imm Gran Abs Auto 0.03 X10*3/uL (0.00-0.03); Imm Gran Pct Auto 0.4 % (0.0-0.4); Lymphocytes Absolute Auto 1.6 X10*3/uL (1.2-4.9); Lymphocytes Percent Auto 19.7 % (20-40); Mean Corpuscular HGB Conc 33.9 g/dl (31.0-36.0); Mean Corpuscular Hemoglobin 30.3 pg (27.0-33.0); Mean Corpuscular Volume 89.4 fL (80.0-98.0); Mean Platelet Volume 10.9 fL (9.4-12.4); Monocytes Absolute Auto 0.7 X10*3/uL (0.1-1.2); Neutrophils Absolute Auto 5.6 x10*3/uL (2.0-8.3); Neutrophils Percent Auto 69.5 % (45-73); Platelet Count 171 X10*3/uL (160-400); Red Blood Count 5.65 X10*6/uL (4.60-5.80); Red Cell Distribution Width 14.6 % (11.0-16.0)
[2024-11-24 03:02] LABS: Anion Gap 16 (12-20); Blood Urea Nitrogen 36 mg/dL (9-16); Carbon Dioxide 22 mmol/L (22-29); Chloride 106 mmol/L (96-108); Creatinine Clr Calc Pharmacy 61.8; Estimated Glomerular Filt Rate 42; Glucose Random 108 mg/dL (60-115); Potassium 4.1 mmol/L (3.3-5.1); Sodium 140 mmol/L (135-145)
[2024-11-24] MEDS: Enoxaparin Sodium 40 MG/0.4 ML SYRINGE SUBCUT (07:51)
[2024-11-24] MEDS: Furosemide 40 MG/4 ML VIAL IVPUSH ×2 (07:51→17:31)
[2024-11-24] MEDS: 0.9 % Sodium Chloride Flush 3 ML SYRINGE IVFLUSH (07:53)
--- NOTE | 2024-11-24 10:33 | PHA.MEDREC ---
Addendum entered by Sri Kang RPh 11/25/24 09:12: Dr. Wright wants dose of carvedilol 37.5 mg bid entered in med rec. Addendum entered by Sri Kang RPh 11/25/24 08:45: Called and spoke to Laura at the [facility] in [place]. Last record of carvedilol being filled was on 08/12/23 for carvedilol 12.5 mg 3 tablets bid for [address] Candelario at the [facility]. Notified Dr. Wright of the information. Original Note: Pharmacy Consult ? Medication Reconciliation Pharmacy has completed the medication reconciliation. Spoke to patient to confirm medication list. Per patient, he takes carvedilol 12.5 mg 4 tablets bid, furosemide 40 mg bid and aspirin 81 mg qd [facility] mg bid, no carvedilol but pt is adamant [facility]. Will call [facility] monday11/25/24 to confirm.
[2024-11-24] MEDS: cefTRIAXone sodium 1 GM VIAL IVPUSH (15:25)
[2024-11-24] MEDS: guaiFENesin LA 600 MG TAB.ER.12H PO ×2 (15:26→20:02)
[2024-11-24] MEDS: Azithromycin 500 MG in 0.9 % Sodium Chloride 250 ML 125 MG IV (15:27)
--- NOTE | 2024-11-24 16:12 | PC.NURSE ---
Pt calls RN to bedside to report IV infusion is causing a burning sensation from his access site and has progressed up to his axilla. IV infusion stopped and IV accessed flushed. Flush completed with noted patency--no pain with flushing IV. Pt denies allergy to Vancomycin. Will hold infusion for 10-15 minutes to see if relief comes with stopping infusion and reassess.
[2024-11-24] MEDS: Albuterol/Iprat 2.5/0.5MG 3 ML AMPUL.NEB INHALE (17:14)
--- NOTE | 2024-11-24 17:49 | PC.NURSE ---
IV infusion restarted with no further complaints from Pt. Pt calls this RN to bedside to reports sudden increase in SOB and feeling dizzy along with some anxiety. Pt sating at 96% on RA but drops to 88% with any movement. RT called to eval Pt for possible need for Tx --Tx performed with no improvement. Pt reports he feels bloated and has not been urinating much today. Pt has requested to use the bathroom multiple times today for loose stool. Scheduled lasix given at this time. Pt brought to bathroom via wheelchair as he reports the feels the need to move his bowels. O2 applied for comfort and Pt reports this is helpful. Pt requests to remain upright in wheelchair at this time as he feels better at this time. Hospitalist notified and orders received to bladder scan Pt--will perform and document.
[2024-11-24] MEDS: Furosemide 100 MG/10 ML VIAL 80 MG IVPUSH (19:14)
[2024-11-24 19:33] LABS: MANUAL DIFF FLAG NO
[2024-11-24 19:36] LABS: VBG Base Excess -5.6 mmol/L; VBG HCO3 18 mmol/L (22-26); VBG pCO2 33 mmHg; VBG pH 7.35 (7.32-7.43); VBG pO2 43 mmHg
[2024-11-24 19:37] LABS: Basophils Absolute Auto 0.1 X10*3/uL (0.0-0.2); Basophils Percent Auto 0.8 % (0-2); Eosinophils Absolute Auto 0.2 X10*3/uL (0.0-0.4); Hematocrit 54.1 % (42.0-52.0); Hemoglobin 18.3 g/dl (14.0-18.0); Imm Gran Abs Auto 0.04 X10*3/uL (0.00-0.03); Imm Gran Pct Auto 0.5 % (0.0-0.4); Lymphocytes Percent Auto 23.6 % (20-40); Mean Corpuscular HGB Conc 33.8 g/dl (31.0-36.0); Mean Corpuscular Hemoglobin 30.1 pg (27.0-33.0); Mean Corpuscular Volume 89.1 fL (80.0-98.0); Mean Platelet Volume 10.6 fL (9.4-12.4); Monocytes Absolute Auto 0.9 X10*3/uL (0.1-1.2); Monocytes Percent Auto 9.9 % (2-11); NRBC Pct Auto 0.3 /100WBC (0.0-0.2); Neutrophils Absolute Auto 5.4 x10*3/uL (2.0-8.3); Neutrophils Percent Auto 63.2 % (45-73); Platelet Count 197 X10*3/uL (160-400); Red Blood Count 6.07 X10*6/uL (4.60-5.80); Red Cell Distribution Width 14.7 % (11.0-16.0); White Blood Count 8.6 X10*3/uL (4.8-10.8)
[2024-11-24 19:55] LABS: Alanine Aminotransferase 25 U/L (0-40); Albumin Level 3.7 g/dL (3.5-5.0); Alkaline Phosphatase 69 U/L (39-117); Anion Gap 21 (12-20); Aspartate Amino Transferase 35 U/L (5-37); Bilirubin Total 1.3 mg/dL (0.0-1.0); Blood Urea Nitrogen 41 mg/dL (9-16); Calcium 8.9 mg/dL (8.4-10.2); Carbon Dioxide 17 mmol/L (22-29); Chloride 107 mmol/L (96-108); Estimated Glomerular Filt Rate 36; Glucose Random 109 mg/dL (60-115); Potassium 4.3 mmol/L (3.3-5.1); Sodium 141 mmol/L (135-145); Total Protein 7.4 g/dL (6.5-8.0)
[2024-11-24 19:56] LABS: Venous Blood Gas Refer to POC result
[2024-11-24 19:58] LABS: Troponin-I High Sensitivity 50.7 ng/L (<3.5-35.0)
[2024-11-24] MEDS: Sodium Bicarbonate 650 MG TABLET PO (20:33)
--- NOTE | 2024-11-24 21:56 | PC.NURSE ---
BIPAP d/shaheed, patient on RA by RT, desat to 88-89% on RA. Patient placed on O@ at 4 LPM NC with improvement, patient maintaining O2 at 95-96%. Male purewick in place, call within patient's reach.
[2024-11-25] VITALS (10 sets, daily range): BP systolic 115–135; BP diastolic 79–93; PULSE 63–92; RESP 16–19; TEMP 36–36.6; O2SAT 96–99; BMI 42.4
[2024-11-25] MEDS: Enoxaparin Sodium 150 MG/ML SYRINGE 135 MG SUBCUT ×3 (00:52→21:26)
[2024-11-25] MEDS: 0.9 % Sodium Chloride Flush 3 ML SYRINGE IVFLUSH ×4 (00:54→23:35)
[2024-11-25 06:56] LABS: MANUAL DIFF FLAG NO
--- NOTE | 2024-11-25 07:00 | CA_ITS ---
Transthoracic Echocardiogram Patient (Last, First, Middle): Maurice Lockwood, Gender: Male Date of : 1960 Age: 64 Procedure Date: 11/25/2024 Procedure Type: Transthoracic Echocardiogram Location[place] [facility] [place] Height: 177.8 cm Weight: 133.81 kg BSA: 2.46 m2 Heart Rate: 81 bpm BP: 121 / 79 mmHg Home Care Scheduler: SB Referring MD: Andrew Garcia MD Symptoms: chf Study Quality: Technically Difficult w/Contrast ECG Rhythm: Atrial Fibrillation Conclusions: - Normal left ventricular cavity size. There is mildly increased left ventricular wall thickness. The left ventricular systolic function is severely decreased. The visually estimated ejection fraction is between 20-25%. - Mildly increased right ventricular cavity size. There is mildly decreased right ventricular systolic function. There is an ICD wire seen in the right ventricle. - The left atrium is severely dilated. - Small mobile mass noted on the tricuspid valve in the parasternal views. Differentials include thrombus vs vegetation. - Ascending aorta is at upper limit of normal for age 3.7 cm. Findings Procedure Information Contrast agent, definity, is being given per protocol without apparent complications. The quality of the study was technically difficult. The study quality is limited by patients body habitus. Left Ventricle Normal left ventricular cavity size. There is mildly increased left ventricular wall thickness. The left ventricular systolic function is severely decreased. The visually estimated ejection fraction is between 20 25%. Diastolic function is indeterminate on the basis of available data. Right Ventricle Mildly increased right ventricular cavity size. There is mildly decreased right ventricular systolic function. There is an ICD wire seen in the right ventricle. Atria The left atrium is severely dilated. The right atrium was not well visualized. Aortic Valve Normal aortic valve structure and function. There is no aortic valve stenosis. There is no aortic valve regurgitation. Mitral Valve There is no mitral valve regurgitation. There is no mitral valve stenosis. Mild calcification of mitral valve leaflets noted. Pulmonic Valve The pulmonic valve is likely normal. Tricuspid Valve There is trace tricuspid valve regurgitation. Tricuspid regurgitation envelope is inadequate for calculation of right ventricular systolic pressure. Indeterminate right atrial pressure. Small mobile mass noted on the tricuspid valve in the parasternal views. Differentials include thrombus vs vegetation. Great Vessels Ascending aorta is at upper limit of normal for age 3.7 cm. Venous The inferior vena cava was not well visualized. Pericardium/Pleural Prominent epicardial adipose tissue noted. There is a small pericardial effusion. Prior Study Comparison No prior study available for comparison. Measurements 2D Linear Measurements IVSd: 1.15 0.6-0.9/0.6-1.0 cm LVIDd: 5.73 3.9-5.3/4.2-5.9 cm LVIDd Index: 2.33 2.4-3.2/2.2-3.1 cm/m2 LVIDs: 5.16 2.0-3.6 cm LVPWd: 1.12 0.7-1.1 cm LA Diam: 5.60 2.7-3.8/3.0-4.0 cm LAIDs Index: 2.28 1.5-2.3 cm/m2 LV Mass: 336.82 67-162/88-224 g LV Mass Index: 136.92 43-95/49-115 g/m2 LVOT Diam: 2.50 3.0+(-)1.3 cm 2D Systolic Function EF 4C: 19.40 >55% EF 2C: 34.20 >55% EF BiP: 28.90 >55% Mitral Valve MV Pk E: 0.82 E'Medial: 5.66 E/E' Med: 14.60 Aortic Valve AoV Pk Drew: 1.03 AoV Pk Grad: 4.00 LAWRENCE: 2.69 LVOT LVOT Pk Drew: 0.57 LVOT Mn Drew: 0.41 LVOT VTI: 0.10 LVOT Pk Grad: 1.00 LVOT Mn Grad: 1.00 LVOT Diam: 2.50 LVOT Area: 4.91 Diastolic Function MV Pk E: 0.82 E'Medial: 5.66 E/E' Med: 14.60 Tricuspid Valve TR Pk Drew: 2.04 TR Pk Grad: 17.00 Great Vessels Aorta Sinus of Valsalva: 3.30 2.0-3.5 cm Ao Asc: 3.70 2.1-3.4 cm Pulmonary Valve PV Pk Drew: 0.36 Peak PV Grad: 1.00 Updated in Other Vendor System with Status of Final Clive Choi MD electronically signed on 11/25/2024 3:17:02 PM with status of Final
[2024-11-25 07:12] LABS: Hemoglobin 18.8 g/dl (14.0-18.0); Imm Gran Abs Auto 0.03 X10*3/uL (0.00-0.03); Imm Gran Pct Auto 0.5 % (0.0-0.4); Mean Corpuscular HGB Conc 34.1 g/dl (31.0-36.0); Mean Corpuscular Hemoglobin 30.5 pg (27.0-33.0); Mean Corpuscular Volume 89.4 fL (80.0-98.0); Monocytes Absolute Auto 0.1 X10*3/uL (0.1-1.2); Monocytes Percent Auto 1.9 % (2-11); Neutrophils Absolute Auto 5.1 x10*3/uL (2.0-8.3); Neutrophils Percent Auto 81.6 % (45-73); Platelet Count 189 X10*3/uL (160-400); Red Blood Count 6.16 X10*6/uL (4.60-5.80); Red Cell Distribution Width 14.9 % (11.0-16.0); White Blood Count 6.2 X10*3/uL (4.8-10.8)
[2024-11-25 07:16] LABS: Hematocrit 55.1 % (42.0-52.0)
[2024-11-25 07:38] LABS: Anion Gap 19 (12-20); Blood Urea Nitrogen 48 mg/dL (9-16); Calcium 9.5 mg/dL (8.4-10.2); Carbon Dioxide 22 mmol/L (22-29); Chloride 104 mmol/L (96-108); Creatinine Clr Calc Pharmacy 50.9; Estimated Glomerular Filt Rate 34; Glucose Random 124 mg/dL (60-115); Potassium 4.8 mmol/L (3.3-5.1); Sodium 140 mmol/L (135-145)
[2024-11-25] MEDS: Aspirin 81 MG TAB.CHEW PO (08:25)
[2024-11-25] MEDS: Furosemide 40 MG/4 ML VIAL IVPUSH ×2 (08:25→16:41)
[2024-11-25] MEDS: guaiFENesin LA 600 MG TAB.ER.12H PO ×2 (08:25→21:23)
--- NOTE | 2024-11-25 09:38 | MHC.CM.PN ---
Pt self-care, lives at home with his significant other Marija, she will transport him home at discharge. Pt has home O2 through [employer], and uses a cane. New HCP completed with pt, now on file. PCP: [facility] in [place]
--- NOTE | 2024-11-25 11:08 | HO.PM.IMPN ---
Subjective Subjective Date of Service: 11/25/24 Interval History: seen and evaluated still reporting SOB and edema denies fever or chills On O2 supplement no other events Review of Systems Review of Systems: Yes all other systems are reviewed and are negative Physical Exam Vital Signs: Vital Signs: Last Vital Signs Temp 97.2 F 11/25/24 07:17 Pulse 63 11/25/24 07:17 Resp 19 11/25/24 07:17 BP 135/83 11/25/24 07:17 Pulse Ox 99 11/25/24 07:17 O2 Del Method Nasal Cannula 11/25/24 07:17 O2 Flow Rate 6 11/25/24 07:17 BMI result Body Mass Index 42.4 Const: Other: Constitutional : Awake, interactive, not in distress Neck : Normal inspection, Supple Cardiovascular : RRR, no JVP, +1 bilaterallower extremity edema Respiratory : decreased bilateral air entry at bases, fine crackles Gastrointestinal: soft, lax, Normal bowel sounds, Non tender Skin : Warm, Dry with chronic dermatitis changes Neurological : Alert & oriented x3, No focal deficit Objective Data Active Medications Acetaminophen (Acetaminophen 325 Mg Tablet) 650 mg PO Q6H PRN PRN Reason: Pain, Mild 1-3,fever,headache Albuterol/Ipratropium (Albuterol/Iprat 2.5/0.5mg 3 Ml Ampul.Neb) 3 ml INHALE Q4H PRN PRN Reason: Shortness of Breath/Wheezing Last Admin: 11/24/24 17:14 Dose: 3 ml Documented By: KAVITHA Aspirin (Aspirin 81 Mg Tab.Chew) 81 mg PO DAILY [facility] Last Admin: 11/25/24 08:25 Dose: 81 mg Documented By: CIPRIANO Benzonatate (Benzonatate 100 Mg Capsule) 100 mg PO TID PRN PRN Reason: Cough Calcium Carbonate (Calcium Carbonate 750 Mg Tab.Chew) 750 mg PO Q4H PRN PRN Reason: Heartburn Ceftriaxone Sodium (Ceftriaxone Sodium 1 Gm Vial) 1 gm IVPUSH Q24H [facility] Last Admin: 11/24/24 15:25 Dose: 1 gm Documented By: ELVIRA Enoxaparin Sodium (Enoxaparin Sodium 150 Mg/Ml Syringe) 135 mg SUBCUT Q12H [facility] Last Admin: 11/25/24 08:31 Dose: 135 mg Documented By: CIPRIANO Furosemide (Furosemide 40 Mg/4 Ml Vial) 40 mg IVPUSH BID@0900,1800 [facility]; Protocol Last Admin: 11/25/24 08:25 Dose: 40 mg Documented By: CIPRIANO Guaifenesin (Guaifenesin La 600 Mg Tab.Er.12h) 600 mg PO BID [facility] Last Admin: 11/25/24 08:25 Dose: 600 mg Documented By: CIPRIANO Azithromycin 500 mg/ Sodium (Chloride) 250 mls @ 125 mls/hr IV Q24H [facility] Last Infusion: 11/25/24 00:26 Dose: Infused Documented By: STEPAN-CONNBruna Lactic Acid (Ammonium Lactate 12 % Lotion 226 Gm Bottle) 1 appl TOPICAL BID [facility]; Protocol Magnesium Hydroxide (Milk Of Magnesia 30 Ml Oral.Susp) 30 ml PO DAILY PRN PRN Reason: Constipation Melatonin (Melatonin 3 Mg Tablet) 6 mg PO BEDTIME PRN PRN Reason: Insomnia Ondansetron HCl (Ondansetron Hcl 4 Mg/2 Ml Vial) 4 mg IVPUSH Q8H PRN PRN Reason: Nausea and Vomiting Sodium Chloride (0.9 % Sodium Chloride Flush 3 Ml Syringe) 3 ml IVFLUSH QSHIFT [facility] Last Admin: 11/25/24 08:25 Dose: 3 ml Documented By: CIPRIANO Labs 11/25/24 06:44 11/25/24 06:44 Labs: Laboratory Results - last 24 hr 11/24/24 11/24/24 11/24/24 19:28 19:29 19:33 MCV 89.1 MCH 30.1 MCHC 33.8 RDW 14.7 Plt Count 197 MPV 10.6 Immature Gran % (Auto) 0.5 H Neut % (Auto) 63.2 Lymph % (Auto) 23.6 [place] % (Auto) 9.9 Eos % (Auto) 2.0 Baso % (Auto) 0.8 Lymph # (Auto) 2.0 [place] # (Auto) 0.9 Eos # (Auto) 0.2 Baso # (Auto) 0.1 Abs Immat Gran (auto) 0.04 H Absolute Neuts (auto) 5.4 Absolute Nucleated RBC 0.030 H Nucleated RBC % (auto) 0.3 H VBG pH 7.35 VBG pCO2 33 VBG pO2 43 VBG HCO3 18 L VBG O2 Saturation 54.0 VBG Base Excess -5.6 Anion Gap 21 H Estim Creat Clear Calc 53.0 Estimated GFR 36 Random Glucose 109 Calcium 8.9 Total Bilirubin 1.3 H AST 35 ALT 25 Alkaline Phosphatase 69 Troponin I High Sens 50.7 H Total Protein 7.4 Albumin 3.7 11/25/24 06:44 MCV 89.4 MCH 30.5 MCHC 34.1 RDW 14.9 Plt Count 189 MPV 11.0 Immature Gran % (Auto) 0.5 H Neut % (Auto) 81.6 H Lymph % (Auto) 16.0 L [place] % (Auto) 1.9 L Eos % (Auto) 0.0 Baso % (Auto) 0.0 Lymph # (Auto) 1.0 L [place] # (Auto) 0.1 Eos # (Auto) 0.0 Baso # (Auto) 0.0 Abs Immat Gran (auto) 0.03 Absolute Neuts (auto) 5.1 Absolute Nucleated RBC 0.000 Nucleated RBC % (auto) 0.0 VBG pH VBG pCO2 VBG pO2 VBG HCO3 VBG O2 Saturation VBG Base Excess Anion Gap 19 Estim Creat Clear Calc 50.9 Estimated GFR 34 Random Glucose 124 H Calcium 9.5 D Total Bilirubin AST ALT Alkaline Phosphatase Troponin I High Sens Total Protein Albumin Assessment and Plan (1) Atrial fibrillation: Status: Acute (2) Systolic heart failure: Status: Acute (3) Acute kidney injury: Status: Acute (4) Atrial fibrillation with controlled ventricular response: Status: Acute Plan This is a 64-year-old male with pertinent history of congestive heart failure with reduced ejection fraction, AFib not on anticoagulation who presents to the emergency department for evaluation of dyspnea. # Acute on chronic congestive heart failure with reduced ejection fraction with hypoxemia continue IV diuresis. Strict I's and O's continue Carvedilol Low-salt diet Pending echo. wean O2 down as tolerated cardiology consult # Acute kidney injuryon CKD3 Cardiorenal in the setting of above Monitor I\O and BMP with diuresis # Atrial fibrillation Rate controlled at the time of admission On beta-violeta. Not on anticoagulation; consider switching to Eliquis as CHADVasc score of 2 # Bilateral lower extremity venous stasis [facility] Ammonium lactate lotion DVT prophylaxis: Lovenox Full code. Discussed with patient at bedside Admit as inpatient and will require overnight minimum hospital stay for IV diuresis, monitoring of kidney function (as above), which is not possible in a lesser acute setting. Quality Stroke Does the patient have a stroke diagnosis?: No VTE Prior VTE?: No VTE Risk Level:: Medical - moderate - high VTE Device Contraindication: Treatment Not Indicated VTE Drug Contraindication: N/A - Med Ordered
--- NOTE | 2024-11-25 13:27 | MHC.CLN ---
CONSULT PT WITH INCREASED NUTRITION RISK R/T PRESSURE INJURY PO 75-100% DIET RX: CARDIAC -APPROPRIATE PT RECEIVING ENSURE TID TO PROMOTE WOUND HEALING SUPP TO PROVIDE 1050KCALS, 60G PROTEIN MONITOR PO INTAKE AND ENCOURAGE SUPPLEMENT SEE FULL CLINICAL NUTRITION ASSESSMENT
[2024-11-25] MEDS: Ammonium Lactate 12 % Lotion 226 GM BOTTLE 1 APPL TOPICAL ×2 (13:44→21:36)
[2024-11-25] MEDS: Azithromycin 500 MG in 0.9 % Sodium Chloride 250 ML 125 MG IV (13:45)
[2024-11-25] MEDS: cefTRIAXone sodium 1 GM VIAL IVPUSH (13:45)
--- NOTE | 2024-11-25 14:33 | PM.CNCAR ---
History of Present Illness History of Present Illness Date of Service: 11/25/24 Requesting physician: Pancho Wright Chief complaint: CHF Narrative: Pleasant 64 year gentleman who is here for acutely decompensated congestive heart failure. He is reporting a history of cardiomyopathy with previous ICD placement. He is saying 15 years ago he was drinking heavily after the of his and at that time was diagnosed with atrial fibrillation and congestive heart failure. He is saying that he has stopped drinking heavily after the diagnosis of cardiomyopathy and continues to drink up to 3 beers per week. He has been experiencing shortness of breath and peripheral edema. He has persistent atrial fibrillation for many years. He is saying that cardioversion was never tried. He is on baby aspirin only. He has not been on anticoagulation with any of the NOACs but did not receive Coumadin initially but apparently was getting supratherapeutic INRs with epistaxis. He has not been following with Cardiology over the last year but was seeing someone locally. He does not know the names. He also has polycythemia and was seeing Heme-Onc previously. Unclear whether this is polycythemic vera or secondary polycythemia. We do not have any echocardiography in our system and he is saying that he has not had any in the last year or so. EKGs showing atrial fibrillation 86 beats per minute, normal axis, poor R-wave progression and can not rule out anteroseptal infarct, low voltage, QTC 502 milliseconds. [facility] Past Medical History Medical History Atrial fibrillation Systolic heart failure Social History Social History Household Members: Significant Other Housing: House Alcohol intake: current Alcohol intake frequency: holidays/special occasions only Alcohol type: beer Patient Tobacco Use Status: Never used Tobacco service: Yes Meds Allergies Allergy/AdvReac Type Severity Reaction Status Date / Time No Known Allergies Allergy Verified 11/23/24 21:49 [No Known Allergies*] Active Medications: Current Medications Acetaminophen (Acetaminophen 325 Mg Tablet) 650 mg PO Q6H PRN PRN Reason: Pain, Mild 1-3,fever,headache Albuterol/Ipratropium (Albuterol/Iprat 2.5/0.5mg 3 Ml Ampul.Neb) 3 ml INHALE Q4H PRN PRN Reason: Shortness of Breath/Wheezing Last Admin: 11/24/24 17:14 Dose: 3 ml Aspirin (Aspirin 81 Mg Tab.Chew) 81 mg PO DAILY [facility] Last Admin: 11/25/24 08:25 Dose: 81 mg Benzonatate (Benzonatate 100 Mg Capsule) 100 mg PO TID PRN PRN Reason: Cough Calcium Carbonate (Calcium Carbonate 750 Mg Tab.Chew) 750 mg PO Q4H PRN PRN Reason: Heartburn Ceftriaxone Sodium (Ceftriaxone Sodium 1 Gm Vial) 1 gm IVPUSH Q24H [facility] Last Admin: 11/25/24 13:45 Dose: 1 gm Enoxaparin Sodium (Enoxaparin Sodium 150 Mg/Ml Syringe) 135 mg SUBCUT Q12H [facility] Last Admin: 11/25/24 08:31 Dose: 135 mg Furosemide (Furosemide 40 Mg/4 Ml Vial) 40 mg IVPUSH BID@0900,1800 [facility]; Protocol Last Admin: 11/25/24 08:25 Dose: 40 mg Guaifenesin (Guaifenesin La 600 Mg Tab.Er.12h) 600 mg PO BID [facility] Last Admin: 11/25/24 08:25 Dose: 600 mg Azithromycin 500 mg/ Sodium (Chloride) 250 mls @ 125 mls/hr IV Q24H [facility] Last Admin: 11/25/24 13:45 Dose: 125 mls/hr Lactic Acid (Ammonium Lactate 12 % Lotion 226 Gm Bottle) 1 appl TOPICAL BID [facility]; Protocol Last Admin: 11/25/24 13:44 Dose: 1 appl Losartan Potassium (Losartan Potassium 25 Mg Tablet) 25 mg PO DAILY [facility]; Protocol Magnesium Hydroxide (Milk Of Magnesia 30 Ml Oral.Susp) 30 ml PO DAILY PRN PRN Reason: Constipation Melatonin (Melatonin 3 Mg Tablet) 6 mg PO BEDTIME PRN PRN Reason: Insomnia Ondansetron HCl (Ondansetron Hcl 4 Mg/2 Ml Vial) 4 mg IVPUSH Q8H PRN PRN Reason: Nausea and Vomiting Sodium Chloride (0.9 % Sodium Chloride Flush 3 Ml Syringe) 3 ml IVFLUSH QSHIFT [facility] Last Admin: 11/25/24 08:25 Dose: 3 ml Home Medications ?Medication ?Instructions ?Recorded ?Confirmed ?Last Taken ?Type aspirin 81 mg tablet 81 mg PO DAILY 11/24/24 11/24/24 11/23/24 History carvedilol 12.5 mg tablet 37.5 mg PO BID 11/24/24 11/25/24 Unknown History furosemide 40 mg tablet 40 mg PO BID 11/24/24 11/24/24 11/23/24 History Physical Exam Vital Signs: Vital Signs: Last Vital Signs Temp 97.8 F 11/25/24 11:11 Pulse 76 11/25/24 11:11 Resp 18 11/25/24 11:11 BP 131/93 H 11/25/24 11:11 Pulse Ox 96 11/25/24 11:11 O2 Del Method Nasal Cannula 11/25/24 11:11 O2 Flow Rate 6 11/25/24 11:11 BMI result Body Mass Index 42.4 GENERAL APPEARANCE: Overweight, on supplemental oxygen, short of breath. NECK: no carotid bruit, elevated jugular venous distention to angle of jaw. SKIN: no suspicious lesions, warm and dry. HEART: no murmurs, irregular rate and rhythm. LUNGS: Crackles right base. ABDOMEN: soft, nontender. EXTREMITIES: + edema. He also has lymphedema. PERIPHERAL PULSES: equal. NEUROLOGIC: No gross deficits, AAO X 3 Objective Labs and Meds 11/25/24 06:44 11/25/24 06:44 Lab results: Laboratory Results - last 24 hr 11/24/24 11/24/24 11/24/24 19:28 19:29 19:33 WBC 8.6 RBC 6.07 H Hgb 18.3 H Hct 54.1 H MCV 89.1 MCH 30.1 MCHC 33.8 RDW 14.7 Plt Count 197 MPV 10.6 Immature Gran % (Auto) 0.5 H Neut % (Auto) 63.2 Lymph % (Auto) 23.6 [place] % (Auto) 9.9 Eos % (Auto) 2.0 Baso % (Auto) 0.8 Lymph # (Auto) 2.0 [place] # (Auto) 0.9 Eos # (Auto) 0.2 Baso # (Auto) 0.1 Abs Immat Gran (auto) 0.04 H Absolute Neuts (auto) 5.4 Absolute Nucleated RBC 0.030 H Nucleated RBC % (auto) 0.3 H VBG pH 7.35 VBG pCO2 33 VBG pO2 43 VBG HCO3 18 L VBG O2 Saturation 54.0 VBG Base Excess -5.6 Sodium 141 Potassium 4.3 Chloride 107 Carbon Dioxide 17 L Anion Gap 21 H BUN 41 H Creatinine 1.91 H Estim Creat Clear Calc 53.0 Estimated GFR 36 Random Glucose 109 Calcium 8.9 Total Bilirubin 1.3 H AST 35 ALT 25 Alkaline Phosphatase 69 Troponin I High Sens 50.7 H Total Protein 7.4 Albumin 3.7 11/25/24 06:44 WBC 6.2 RBC 6.16 H Hgb 18.8 H Hct 55.1 H MCV 89.4 MCH 30.5 MCHC 34.1 RDW 14.9 Plt Count 189 MPV 11.0 Immature Gran % (Auto) 0.5 H Neut % (Auto) 81.6 H Lymph % (Auto) 16.0 L [place] % (Auto) 1.9 L Eos % (Auto) 0.0 Baso % (Auto) 0.0 Lymph # (Auto) 1.0 L [place] # (Auto) 0.1 Eos # (Auto) 0.0 Baso # (Auto) 0.0 Abs Immat Gran (auto) 0.03 Absolute Neuts (auto) 5.1 Absolute Nucleated RBC 0.000 Nucleated RBC % (auto) 0.0 VBG pH VBG pCO2 VBG pO2 VBG HCO3 VBG O2 Saturation VBG Base Excess Sodium 140 Potassium 4.8 Chloride 104 Carbon Dioxide 22 Anion Gap 19 BUN 48 H Creatinine 1.99 H Estim Creat Clear Calc 50.9 Estimated GFR 34 Random Glucose 124 H Calcium 9.5 D Total Bilirubin AST ALT Alkaline Phosphatase Troponin I High Sens Total Protein Albumin Imaging Radiologist's impression: Impressions Venous Duplex 11/25/24 12:27 IMPRESSION: No acute deep venous thrombosis interrogated veins, bilateral lower extremities. Negative for DVT. 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 He is here with acute decompensated heart failure. He is saying he has been in atrial fibrillation for approximately 15 years. No cardioversion was tried before and he has not been on anticoagulation. He has indication for anticoagulation and should be started on Eliquis 5 mg twice a day. Aspirin can be discontinued after Eliquis is added. I think his creatinine is at his baseline and he probably has CKD. I think we should try low-dose ARB and spironolactone 25 mg daily. We will repeat echocardiography to assess the ejection fraction. Hold the carvedilol for now. Continue IV diuretics with low threshold to increase the diuretic dose to 80 mg IV b.i.d.. Monitor electrolytes closely. Etiology of his cardiomyopathy previously was felt to be alcohol abuse but he has not been drinking heavily for long time now. We should anticipate some recovery. If in fact he does not have any recovery in ejection fraction then it is possible that atrial fibrillation is a potential reason for cardiomyopathy and given the fact that he has never been cardioverted I think it makes sense to try cardioversion with amiodarone. This will need further discussion once we have echocardiography repeated. Thank you for allowing me to participate in the care of your patient. Please feel free to contact me if you have any questions. Procedures Date of Service Date of Service: 11/25/24
[2024-11-25] MEDS: Losartan Potassium 25 MG TABLET PO (16:40)
[2024-11-25] MEDS: Spironolactone 25 MG TABLET PO (16:40)
[2024-11-25] MEDS: Melatonin 3 MG TABLET 6 MG PO (21:23)
[2024-11-26] VITALS (7 sets, daily range): BP systolic 110–144; BP diastolic 60–96; PULSE 73–84; RESP 16–18; TEMP 36–36.6; O2SAT 94–99; BMI 40.7
[2024-11-26] MEDS: guaiFENesin LA 600 MG TAB.ER.12H PO ×2 (08:38→20:23)
[2024-11-26] MEDS: Losartan Potassium 25 MG TABLET PO (08:38)
[2024-11-26] MEDS: Apixaban 5 MG TABLET PO ×2 (08:38→20:23)
[2024-11-26] MEDS: Spironolactone 25 MG TABLET PO (08:38)
[2024-11-26] MEDS: Furosemide 40 MG/4 ML VIAL IVPUSH ×2 (08:39→13:06)
[2024-11-26] MEDS: 0.9 % Sodium Chloride Flush 3 ML SYRINGE IVFLUSH ×3 (08:39→20:27)
[2024-11-26] MEDS: Ammonium Lactate 12 % Lotion 226 GM BOTTLE 1 APPL TOPICAL ×2 (08:44→20:25)
[2024-11-26 09:41] LABS: MANUAL DIFF FLAG NO
[2024-11-26 09:44] LABS: Basophils Percent Auto 0.2 % (0-2); Eosinophils Percent Auto 0.1 % (0-4); Hematocrit 51.7 % (42.0-52.0); Hemoglobin 17.4 g/dl (14.0-18.0); Imm Gran Abs Auto 0.09 X10*3/uL (0.00-0.03); Imm Gran Pct Auto 0.7 % (0.0-0.4); Lymphocytes Absolute Auto 1.7 X10*3/uL (1.2-4.9); Mean Corpuscular HGB Conc 33.7 g/dl (31.0-36.0); Mean Corpuscular Hemoglobin 30.5 pg (27.0-33.0); Mean Corpuscular Volume 90.5 fL (80.0-98.0); Monocytes Absolute Auto 1.4 X10*3/uL (0.1-1.2); Monocytes Percent Auto 10.6 % (2-11); Neutrophils Absolute Auto 9.6 x10*3/uL (2.0-8.3); Neutrophils Percent Auto 75.4 % (45-73); Platelet Count 212 X10*3/uL (160-400); Red Blood Count 5.71 X10*6/uL (4.60-5.80); Red Cell Distribution Width 14.9 % (11.0-16.0); White Blood Count 12.7 X10*3/uL (4.8-10.8)
[2024-11-26 09:57] LABS: Anion Gap 15 (12-20); Blood Urea Nitrogen 54 mg/dL (9-16); Calcium 8.8 mg/dL (8.4-10.2); Carbon Dioxide 23 mmol/L (22-29); Chloride 106 mmol/L (96-108); Creatinine Clr Calc Pharmacy 54.5; Estimated Glomerular Filt Rate 38; Glucose Random 112 mg/dL (60-115); Potassium 4.6 mmol/L (3.3-5.1); Sodium 139 mmol/L (135-145)
--- NOTE | 2024-11-26 11:39 | PM.PNCARD ---
Subjective Subjective Date of Service: 11/26/24 Interval history: Seen examined at bedside. Continues to be volume overloaded. Physical Exam Vital Signs: Last Vital Signs Temp 97.3 F 11/26/24 07:42 Pulse 80 11/26/24 07:42 Resp 18 11/26/24 07:42 BP 140/66 H 11/26/24 07:42 Pulse Ox 99 11/26/24 07:42 O2 Del Method Nasal Cannula 11/26/24 07:42 O2 Flow Rate 4 11/26/24 07:42 BMI result Body Mass Index 40.7 GENERAL APPEARANCE: Overweight, on supplemental oxygen, short of breath. NECK: no carotid bruit, elevated jugular venous distention to angle of jaw. SKIN: no suspicious lesions, warm and dry. HEART: no murmurs, irregular rate and rhythm. LUNGS: Crackles right base. ABDOMEN: soft, nontender. EXTREMITIES: + edema. He also has lymphedema. PERIPHERAL PULSES: equal. NEUROLOGIC: No gross deficits, AAO X 3 Objective Labs and Meds 11/26/24 09:18 11/26/24 09:18 Lab results: Laboratory Results - last 24 hr 11/26/24 09:18 WBC 12.7 H RBC 5.71 Hgb 17.4 Hct 51.7 MCV 90.5 MCH 30.5 MCHC 33.7 RDW 14.9 Plt Count 212 MPV 11.0 Immature Gran % (Auto) 0.7 H Neut % (Auto) 75.4 H Lymph % (Auto) 13.0 L Wright % (Auto) 10.6 Eos % (Auto) 0.1 Baso % (Auto) 0.2 Lymph # (Auto) 1.7 Wright # (Auto) 1.4 H Eos # (Auto) 0.0 Baso # (Auto) 0.0 Abs Immat Gran (auto) 0.09 H Absolute Neuts (auto) 9.6 H Absolute Nucleated RBC 0.000 Nucleated RBC % (auto) 0.0 Sodium 139 Potassium 4.6 Chloride 106 Carbon Dioxide 23 Anion Gap 15 BUN 54 H Creatinine 1.82 H Estim Creat Clear Calc 54.5 Estimated GFR 38 Random Glucose 112 Calcium 8.8 D Imaging Radiologist's impression: Impressions Venous Duplex 11/25/24 12:27 IMPRESSION: No acute deep venous thrombosis interrogated veins, bilateral lower extremities. Negative for DVT. Electronically signed by: Augusto Eddy MD 11/25/2024 01:09 PM EDT Progress Note: A&P Assessment and plan (1) Atrial fibrillation: Status: Acute (2) Systolic heart failure: Status: Acute Plan [age] year gentleman with background of cardiomyopathy with severe LV dysfunction. This was diagnosed approximately 15 years ago when he was drinking heavily. He has been in atrial fibrillation and has been rate controlled previously. Continues to have LV dysfunction with EF 20 25%. There is also mild RV dysfunction. Added losartan 25 mg daily. Added spironolactone 25 mg daily. Increase Lasix to 80 mg IV b.i.d.. Patient is on Eliquis for anticoagulation. As clinically starts improving further I think we consider adding amiodarone and eventually do a MADAY cardioversion on him. 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 Thank you for allowing me to participate in the care of your patient. Please feel free to contact me if you have any questions. Time Spent With Patient Time: Total time managing care of this patient today ____ minutes. Progress Note: Quality Stroke Does the patient have a stroke diagnosis?: No Procedures Date of Service Date of Service: 11/26/24
--- NOTE | 2024-11-26 12:46 | HO.PM.IMPN ---
Subjective Subjective Date of Service: 11/26/24 Interval History: seen and evaluated still reporting SOB and edema denies fever or chills On O2 supplement no other events Review of Systems Review of Systems: Yes all other systems are reviewed and are negative Physical Exam Vital Signs: Vital Signs: Last Vital Signs Temp 97.3 F 11/26/24 07:42 Pulse 80 11/26/24 07:42 Resp 18 11/26/24 07:42 BP 140/66 H 11/26/24 07:42 Pulse Ox 99 11/26/24 07:42 O2 Del Method Nasal Cannula 11/26/24 07:42 O2 Flow Rate 4 11/26/24 07:42 BMI result Body Mass Index 40.7 Const: Other: Constitutional : Awake, interactive, not in distress Neck : Normal inspection, Supple Cardiovascular : RRR, no JVP, +1 bilaterallower extremity edema Respiratory : decreased bilateral air entry at bases, fine crackles Gastrointestinal: soft, lax, Normal bowel sounds, Non tender Skin : Warm, Dry with chronic dermatitis changes , dusky feet, tip of 4th Lt toe blackish discoloration, chronic wounds bilateral LE Neurological : Alert & oriented x3, No focal deficit Objective Data Active Medications Acetaminophen (Acetaminophen 325 Mg Tablet) 650 mg PO Q6H PRN PRN Reason: Pain, Mild 1-3,fever,headache Albuterol/Ipratropium (Albuterol/Iprat 2.5/0.5mg 3 Ml Ampul.Neb) 3 ml INHALE Q4H PRN PRN Reason: Shortness of Breath/Wheezing Last Admin: 11/24/24 17:14 Dose: 3 ml Documented By: KAVITHA Apixaban (Apixaban 5 Mg Tablet) 5 mg PO BID [facility] Last Admin: 11/26/24 08:38 Dose: 5 mg Documented By: ARIANE Benzonatate (Benzonatate 100 Mg Capsule) 100 mg PO TID PRN PRN Reason: Cough Calcium Carbonate (Calcium Carbonate 750 Mg Tab.Chew) 750 mg PO Q4H PRN PRN Reason: Heartburn Ceftriaxone Sodium (Ceftriaxone Sodium 1 Gm Vial) 1 gm IVPUSH Q24H [facility] Last Admin: 11/25/24 13:45 Dose: 1 gm Documented By: CIPRIANO Furosemide (Furosemide 40 Mg/4 Ml Vial) 80 mg IVPUSH BID@0900,1800 [facility]; Protocol Guaifenesin (Guaifenesin La 600 Mg Tab.Er.12h) 600 mg PO BID [facility] Last Admin: 11/26/24 08:38 Dose: 600 mg Documented By: ARIANE Azithromycin 500 mg/ Sodium (Chloride) 250 mls @ 125 mls/hr IV Q24H [facility] Last Infusion: 11/25/24 16:18 Dose: Infused Documented By: CIPRIANO Lactic Acid (Ammonium Lactate 12 % Lotion 226 Gm Bottle) 1 appl TOPICAL BID [facility]; Protocol Last Admin: 11/26/24 08:44 Dose: 1 appl Documented By: ARIANE Losartan Potassium (Losartan Potassium 25 Mg Tablet) 25 mg PO DAILY [facility]; Protocol Last Admin: 11/26/24 08:38 Dose: 25 mg Documented By: ARAINE Magnesium Hydroxide (Milk Of Magnesia 30 Ml Oral.Susp) 30 ml PO DAILY PRN PRN Reason: Constipation Melatonin (Melatonin 3 Mg Tablet) 6 mg PO BEDTIME PRN PRN Reason: Insomnia Last Admin: 11/25/24 21:23 Dose: 6 mg Documented By: LOUISA Ondansetron HCl (Ondansetron Hcl 4 Mg/2 Ml Vial) 4 mg IVPUSH Q8H PRN PRN Reason: Nausea and Vomiting Sodium Chloride (0.9 % Sodium Chloride Flush 3 Ml Syringe) 3 ml IVFLUSH QSHIFT [facility] Last Admin: 11/26/24 08:39 Dose: 3 ml Documented By: ARIANE Spironolactone (Spironolactone 25 Mg Tablet) 25 mg PO DAILY [facility]; Protocol Last Admin: 11/26/24 08:38 Dose: 25 mg Documented By: ARIANE Labs 11/26/24 09:18 11/26/24 09:18 Labs: Laboratory Results - last 24 hr 11/26/24 09:18 MCV 90.5 MCH 30.5 MCHC 33.7 RDW 14.9 Plt Count 212 MPV 11.0 Immature Gran % (Auto) 0.7 H Neut % (Auto) 75.4 H Lymph % (Auto) 13.0 L [place] % (Auto) 10.6 Eos % (Auto) 0.1 Baso % (Auto) 0.2 Lymph # (Auto) 1.7 [place] # (Auto) 1.4 H Eos # (Auto) 0.0 Baso # (Auto) 0.0 Abs Immat Gran (auto) 0.09 H Absolute Neuts (auto) 9.6 H Absolute Nucleated RBC 0.000 Nucleated RBC % (auto) 0.0 Anion Gap 15 Estim Creat Clear Calc 54.5 Estimated GFR 38 Random Glucose 112 Calcium 8.8 D Assessment and Plan (1) Atrial fibrillation: Status: Acute (2) Systolic heart failure: Status: Acute (3) Acute kidney injury: Status: Acute (4) Atrial fibrillation with controlled ventricular response: Status: Acute Plan This is a 64-year-old male with pertinent history of congestive heart failure with reduced ejection fraction, AFib not on anticoagulation who presents to the emergency department for evaluation of dyspnea. # Acute on chronic congestive heart failure with reduced ejection fraction with hypoxemia continue IV diuresis. increase Lasix to 80 bid Strict I's and O's continue Carvedilol Low-salt diet Pending echo. wean O2 down as tolerated cardiology consult, full anticoagulation, consider # Acute kidney injury on CKD3 seems more of a new baseline Monitor I\O and BMP # chronic Atrial fibrillation Rate controlled at the time of admission On beta-violeta. switching to Eliquis DC ASA # Bilateral lower extremity venous stasis Consulting Wound Care Ammonium lactate lotion # black toe 4th Lt toe tip discoloration findings suggestive of chronic perfusion problem to LE to get Vascular consult DVT prophylaxis: Eliquis Full code. Discussed with patient at bedside Admit as inpatient and will require overnight minimum hospital stay for IV diuresis, monitoring of kidney function (as above), which is not possible in a lesser acute setting. Quality Stroke Does the patient have a stroke diagnosis?: No VTE Prior VTE?: No VTE Risk Level:: Medical - moderate - high VTE Device Contraindication: Treatment Not Indicated VTE Drug Contraindication: N/A - Med Ordered
[2024-11-26] MEDS: Azithromycin 500 MG in 0.9 % Sodium Chloride 250 ML 125 MG IV (13:06)
[2024-11-26] MEDS: cefTRIAXone sodium 1 GM VIAL IVPUSH (13:06)
--- NOTE | 2024-11-26 14:13 | P.CDIM_ITS ---
PROVIDER RESPONSE TEXT: To clarify, the appropriate diagnosis supported by the clinical indicators: Pressure Injury left toe 4th digit Unstageable: confirmed QUERY TEXT: PHYSICIAN'S DOCUMENTATION REQUEST Date of Query: 11/25/2024 11:37 AM EDT Patient Name: Maurice Lockwood Admit Date: 11/24/2024 Dear Pancho Wright MD, A review of the medical record indicates additional documentation may be needed. Please review below and update the documentation accordingly. Clinical Indicators: Wound care nursing assessment 11/25/24 - Pressure injury left 4th toe Unstageable. Necrotic INVENTORY ASSOCIATE AND DRIVER Based on the above, could you please provide further information regarding the ulcer/wound/injury: Pressure Injury left toe 4th digit Unstageable confirmed, suspected, cannot rule out, possible, probable etc. Other specified Other (explain) Clinically unable to determine (explain) Thank you, Nimco Casper, CCS, CDIS Use of terms such as suspected, likely, concern for, or probable (associated with a specific diagnosi s that is being evaluated, monitored, or treated as if it exists) are acceptable and can be coded in the inpatient se tting, when documented at the time of discharge. Please use your independent medical judgment in providing your response. THIS QUERY IS PART OF THE PERMANENT MEDICAL RECORD
--- NOTE | 2024-11-26 14:13 | P.CDIM_ITS ---
PROVIDER RESPONSE TEXT: To clarify, the appropriate diagnosis supported by the clinical indicators: Severe or Morbid Obesity QUERY TEXT: PHYSICIAN'S DOCUMENTATION REQUEST Date of Query: 11/25/2024 11:41 AM EDT Patient Name: Maurice Lockwood Admit Date: 11/24/2024 Dear Pancho Wright MD, A review of the medical record indicates additional documentation may be needed. Please review below and update the documentation accordingly. Clinical Indicators: Height: 5ft 10in Weight: 133.9kg BMI: 42.4 If possible, please provide an associated diagnosis related to the abnormal BMI, such as: Obesity Due to excess calories Obesity Due to other cause Specify the other cause Severe or Morbid Obesity Other (explain) Clinically unable to determine (explain) Thank you, Nimco Casper, CCS, CDIS Use of terms such as suspected, likely, concern for, or probable (associated with a specific diagnosi s that is being evaluated, monitored, or treated as if it exists) are acceptable and can be coded in the inpatient se tting, when documented at the time of discharge. Please use your independent medical judgment in providing your response. THIS QUERY IS PART OF THE PERMANENT MEDICAL RECORD
[2024-11-26] MEDS: Furosemide 40 MG/4 ML VIAL 80 MG IVPUSH (17:28)
[2024-11-27] VITALS (8 sets, daily range): BP systolic 113–142; BP diastolic 74–95; PULSE 75–97; RESP 16–18; TEMP 35.9–37.2; O2SAT 94–97
[2024-11-27 06:58] LABS: Anion Gap 12 (12-20); Blood Urea Nitrogen 56 mg/dL (9-16); Calcium 8.6 mg/dL (8.4-10.2); Carbon Dioxide 24 mmol/L (22-29); Chloride 109 mmol/L (96-108); Creatinine Clr Calc Pharmacy 63.6; Estimated Glomerular Filt Rate 45; Glucose Random 107 mg/dL (60-115); Potassium 3.8 mmol/L (3.3-5.1); Sodium 141 mmol/L (135-145)
[2024-11-27 07:04] LABS: B Type Natriuretic Peptide 474 pg/mL (<100)
[2024-11-27] MEDS: Spironolactone 25 MG TABLET PO ×2 (08:24→20:57)
[2024-11-27] MEDS: Furosemide 40 MG/4 ML VIAL 80 MG IVPUSH (08:24)
[2024-11-27] MEDS: guaiFENesin LA 600 MG TAB.ER.12H PO ×2 (08:24→20:55)
[2024-11-27] MEDS: Losartan Potassium 25 MG TABLET PO (08:24)
[2024-11-27] MEDS: Apixaban 5 MG TABLET PO ×2 (08:24→20:56)
[2024-11-27] MEDS: 0.9 % Sodium Chloride Flush 3 ML SYRINGE IVFLUSH ×2 (08:25→23:31)
--- NOTE | 2024-11-27 10:10 | P.CONGS_ITS ---
<Statement entered by Henry Ochoa MD - 11/27/24 11:28> I have seen and evaluated the patient and agree with history, findings, assessment and plan documented by Rebekah Deleon PA-c. Can see us as outpatient. Thank you for allowing us to assist in his care. History of Present Illness Consult details Consult date: 11/27/24 Narrative: We were consulted on Maurice, for concerns of dusky toes. He presented to the ER on 11/23 with concerns of increased dyspnea, particularly with exertion. He has a medical hx pertinent for HFrEF, AICD, AFib not on anticoagulation, and home O2 use prn. He was admitted for pulmonary congestion with elevated BNP levels and for IV diuresis. He states his legs have been swollen with intermittent weeping and wounds for appx 11y now. He has not seen any specialists for this. He states he just covers up the areas when they start weeping or there is wounds. He denies any injuries to his legs. He does utilize a cane to ambulate at home. He states he noticed a small black spot on his left 4th toe awhile ago. He denies any injuries/wounds to the area. He states his signficant other cuts his toenails but denies any injuries to the skin/nail when she cut them last. Review of Systems 2 Constitutional: Constitutional: Reports as per HPI and Denies weakness ENT: Reports Normal hearing present and Denies dizziness Cardiovascular: Cardiovascular: Reports as per HPI, Denies chest pain, Denies chest pain at rest, Denies chest pain with activity, Denies dyspnea and Denies dyspnea on exertion Respiratory: Respiratory: Reports as per HPI, Denies cough, Denies dyspnea and Denies dyspnea on exertion Gastrointestinal: Gastrointestinal: Reports as per HPI, Denies abdominal pain, Denies nausea and Denies vomiting Musculoskeletal: Musculoskeletal: Denies numbness Integumentary/Breasts: Skin/Breast: Reports as per HPI, Denies erythema and Denies wounds Neurologic: Reports Normal hearing present, Denies dizziness, Denies numbness, Denies Sensory deficit (Neuro) and Denies weakness Psychiatric: Psychiatric: Reports no additional psychiatric complaints Endocrine: Endocrine: Reports no additional endocrine complaints PMFSH Past Medical History Medical History Atrial fibrillation Systolic heart failure Social History Social History Household Members: Significant Other Housing: House Alcohol intake: current Alcohol intake frequency: holidays/special occasions only Alcohol type: beer Patient Tobacco Use Status: Never used Tobacco service: Yes Meds Allergies Allergy/AdvReac Type Severity Reaction Status Date / Time No Known Allergies (No Known Allergy Verified 11/23/24 21:49 Allergies*) Active Medications: Current Medications Acetaminophen (Acetaminophen 325 Mg Tablet) 650 mg PO Q6H PRN PRN Reason: Pain, Mild 1-3,fever,headache Albuterol/Ipratropium (Albuterol/Iprat 2.5/0.5mg 3 Ml Ampul.Neb) 3 ml INHALE Q4H PRN PRN Reason: Shortness of Breath/Wheezing Last Admin: 11/24/24 17:14 Dose: 3 ml Apixaban (Apixaban 5 Mg Tablet) 5 mg PO BID [facility] Last Admin: 11/27/24 08:24 Dose: 5 mg Benzonatate (Benzonatate 100 Mg Capsule) 100 mg PO TID PRN PRN Reason: Cough Calcium Carbonate (Calcium Carbonate 750 Mg Tab.Chew) 750 mg PO Q4H PRN PRN Reason: Heartburn Ceftriaxone Sodium (Ceftriaxone Sodium 1 Gm Vial) 1 gm IVPUSH Q24H [facility] Last Admin: 11/26/24 13:06 Dose: 1 gm Furosemide (Furosemide 40 Mg/4 Ml Vial) 80 mg IVPUSH BID@0900,1800 [facility]; Protocol Last Admin: 11/27/24 08:24 Dose: 80 mg Guaifenesin (Guaifenesin La 600 Mg Tab.Er.12h) 600 mg PO BID [facility] Last Admin: 11/27/24 08:24 Dose: 600 mg Azithromycin 500 mg/ Sodium (Chloride) 250 mls @ 125 mls/hr IV Q24H [facility] Last Infusion: 11/26/24 15:15 Dose: Infused Lactic Acid (Ammonium Lactate 12 % Lotion 226 Gm Bottle) 1 appl TOPICAL BID [facility]; Protocol Last Admin: 11/27/24 09:00 Dose: Not Given Losartan Potassium (Losartan Potassium 25 Mg Tablet) 25 mg PO DAILY [facility]; Protocol Last Admin: 11/27/24 08:24 Dose: 25 mg Magnesium Hydroxide (Milk Of Magnesia 30 Ml Oral.Susp) 30 ml PO DAILY PRN PRN Reason: Constipation Melatonin (Melatonin 3 Mg Tablet) 6 mg PO BEDTIME PRN PRN Reason: Insomnia Last Admin: 11/25/24 21:23 Dose: 6 mg Sodium Chloride (0.9 % Sodium Chloride Flush 3 Ml Syringe) 3 ml IVFLUSH QSHIFT [facility] Last Admin: 11/27/24 08:25 Dose: 3 ml Spironolactone (Spironolactone 25 Mg Tablet) 25 mg PO BID [facility]; Protocol Home Medications ?Medication ?Instructions ?Recorded ?Confirmed ?Last Taken ?Type aspirin 81 mg tablet 81 mg PO DAILY 11/24/2411/1011/23/24 History carvedilol 12.5 mg tablet 37.5 mg PO BID 11/24/2411/10 Unknown History furosemide 40 mg tablet 40 mg PO BID 11/24/2411/23/24 History Physical Exam 2 Vital Signs: Vital Signs: Last Vital Signs Temp 97.8 F 11/27/24 07:30 Pulse 75 11/27/24 07:30 Resp 17 11/27/24 07:30 BP 132/93 H 11/27/24 07:30 Pulse Ox 95 11/27/24 07:56 O2 Del Method Room Air 11/27/24 07:30 O2 Flow Rate 3 11/27/24 04:00 BMI result Body Mass Index 40.7 Const: General: comfortable and no acute distress O rientation/consciousness: patient oriented x3 HEENT: Ears: hearing grossly normal bilaterally Resp: Effort & Inspection: normal respiratory effort and able to speak in complete sentences Auscultation: clear to auscultation bilaterally Cardio: Rate: regular rate Rhythm: regular rhythm Heart sounds: S1 normal heart sound present and S2 normal heart sound present Bruits: no abdominal aortic bruits, no carotid bruits, no femoral bruits and no renal bruits GI: Palpation (GI): No Abdominal aortic bruit present Neuro: General: patient oriented x3 Cranial nerves: Yes Normal hearing present Sensory Exam: No Sensory deficit (Neuro) Extrem: Other: Bilateral lower extremities: +3 pitting edema noted. Faint but palpable DP pulses, difficult to find due to edema. Feet and legs warm to the touch. Hyperkeratosis and hyperplasia noted. Deep erythematous discoloration noted from just below the knee to the tips of the toes. Right lower extremity: 4 small wounds noted, on the anterior tibial area, the medial ankle, and 2 on the medial aspect of the calf. Small amount of clear fluid weeping from all the wounds. Left lower extremity: 4 small open wounds noted, on the anterior tibial area, the lateral silveira mid-calf, and 2 on the medial aspect of the lower calf. Small amount of clear fluid weeping from all the wounds. Left 4th toe: small area of dry eschar noted just below the toenail, unable to remove. No surrounding erythema. Results Labs 11/26/24 09:18 11/27/24 06:19 Labs: Abnormal lab results 11/27/24 Range/Units 06:19 Chloride 109 H (96-108) mmol/L BUN 56 H (9-16) mg/dL Creatinine 1.56 H (0.5-1.4) mg/dL B-Natriuretic Peptide 474 H (<100) pg/mL BMP 11/27/24 06:19 Sodium 141 Potassium 3.8 Chloride 109 H Carbon Dioxide 24 BUN 56 H Creatinine 1.56 H Calcium 8.6 All other labs normal. Assessment and Plan (1) Lymphedema: Status: Acute Plan We were consulted on Maurice, for concerns of discoloration in the feet and wound on the left 4th toe. He presented to the ER with OCHOA and decreased urinary output. He was admitted for IV diuresis. He was found to have dry eschar noted on the left 4th toe, which the pt states has been there for awhile (unsure of exact time frame). He had a cardiac echo on 11/24, which revealed an EF of 20- 25%. He had a venous duplex on 11/25, which revealed no DVT. We recommend for wound care: alginate on weeping wounds only, 4x4, and Kerlix wrap, to be changed daily. There is no acute vascular surgical intervention at this point. We would recommend follow up outpatient for further evaluation and treatment. If there are any questions or concerns, please do not hesitate to reach out to us. Procedures Date of Service Date of Service: 11/27/24
--- NOTE | 2024-11-27 12:19 | MHC.CLN ---
F/U PT WITH INCREASED NUTRITION RISK R/T PRESSURE INJURY PO CONSISTENTLY 75-100% DIET RX: CARDIAC 1500ML FLUID RESTRICTION-APPROPRIATE PT RECEIVING ENSURE TID TO PROMOTE WOUND HEALING SUPP TO PROVIDE 1050KCALS, 60G PROTEIN, 612ML TOTAL FREE WATER FROM SUPPLEMENTS MONITOR PO INTAKE AND ENCOURAGE SUPPLEMENT
--- NOTE | 2024-11-27 13:54 | P.PNIM_ITS ---
Subjective Subjective Date of Service: 11/27/24 Interval History: seen and evaluated imrpvoing SOB and edema made significant amoung of urine overnight but still looking overloaded denies fever or chills On O2 supplement no other events Review of Systems Review of Systems: Yes all other systems are reviewed and are negative Physical Exam 2 Vital Signs: Vital Signs: Last Vital Signs Temp 98.0 F 11/27/24 11:15 Pulse 82 11/27/24 11:15 Resp 16 11/27/24 11:15 BP 113/74 11/27/24 11:15 Pulse Ox 94 11/27/24 11:15 O2 Del Method Room Air 11/27/24 11:15 O2 Flow Rate 3 11/27/24 04:00 BMI result Body Mass Index 40.7 Const: Other: Constitutional : Awake, interactive, not in distress Neck : Normal inspection, Supple Cardiovascular : RRR, elevated JVP, +1 bilateral lower extremity edema Respiratory : decreased bilateral air entry at bases, fine crackles Gastrointestinal: soft, lax, Normal bowel sounds, Non tender Skin : Warm, Dry with chronic dermatitis changes , dusky feet, tip of 4th Lt toe blackish discoloration, chronic wounds bilateral LE Neurological : Alert & oriented x3, No focal deficit Objective Data Active Medications Acetaminophen (Acetaminophen 325 Mg Tablet) 650 mg PO Q6H PRN PRN Reason: Pain, Mild 1-3,fever,headache Albuterol/Ipratropium (Albuterol/Iprat 2.5/0.5mg 3 Ml Ampul.Neb) 3 ml INHALE Q4H PRN PRN Reason: Shortness of Breath/Wheezing Last Admin: 11/24/24 17:14 Dose: 3 ml Documented By: SCOVIXU Apixaban (Apixaban 5 Mg Tablet) 5 mg PO BID [facility] Last Admin: 11/27/24 08:24 Dose: 5 mg Documented By: DOBROB Benzonatate (Benzonatate 100 Mg Capsule) 100 mg PO TID PRN PRN Reason: Cough Calcium Carbonate (Calcium Carbonate 750 Mg Tab.Chew) 750 mg PO Q4H PRN PRN Reason: Heartburn Ceftriaxone Sodium (Ceftriaxone Sodium 1 Gm Vial) 1 gm IVPUSH Q24H [facility] Last Admin: 11/26/24 13:06 Dose: 1 gm Documented By: ARIANE Furosemide (Furosemide 40 Mg/4 Ml Vial) 80 mg IVPUSH BID@0900,1800 [facility]; Protocol Last Admin: 11/27/24 08:24 Dose: 80 mg Documented By: ALFA Guaifenesin (Guaifenesin La 600 Mg Tab.Er.12h) 600 mg PO BID [facility] Last Admin: 11/27/24 08:24 Dose: 600 mg Documented By: ALFA Azithromycin 500 mg/ Sodium (Chloride) 250 mls @ 125 mls/hr IV Q24H [facility] Last Infusion: 11/26/24 15:15 Dose: Infused Documented By: KEL Lactic Acid (Ammonium Lactate 12 % Lotion 226 Gm Bottle) 1 appl TOPICAL BID [facility]; Protocol Last Admin: 11/27/24 09:00 Dose: Not Given Documented By: ALFA Non-Admin Reason: dressing changed by vascular Losartan Potassium (Losartan Potassium 25 Mg Tablet) 25 mg PO DAILY [facility]; Protocol Last Admin: 11/27/24 08:24 Dose: 25 mg Documented By: ALFA Magnesium Hydroxide (Milk Of Magnesia 30 Ml Oral.Susp) 30 ml PO DAILY PRN PRN Reason: Constipation Melatonin (Melatonin 3 Mg Tablet) 6 mg PO BEDTIME PRN PRN Reason: Insomnia Last Admin: 11/25/24 21:23 Dose: 6 mg Documented By: ASHLEYASY Sodium Chloride (0.9 % Sodium Chloride Flush 3 Ml Syringe) 3 ml IVFLUSH QSHIFT [facility] Last Admin: 11/27/24 08:25 Dose: 3 ml Documented By: ALFA Spironolactone (Spironolactone 25 Mg Tablet) 25 mg PO BID [facility]; Protocol Labs 11/26/24 09:18 11/27/24 06:19 Labs: Laboratory Results - last 24 hr 11/27/24 06:19 Anion Gap 12 Estim Creat Clear Calc 63.6 Estimated GFR 45 Random Glucose 107 Calcium 8.6 B-Natriuretic Peptide 474 H Assessment and Plan (1) Lymphedema: Status: Acute (2) Atrial fibrillation: Status: Acute (3) Systolic heart failure: Status: Acute (4) Atrial fibrillation with controlled ventricular response: Status: Acute Plan This is a 64-year-old male with pertinent history of congestive heart failure with reduced ejection fraction, AFib not on anticoagulation who presents to the emergency department for evaluation of dyspnea. # Acute on chronic congestive heart failure with reduced ejection fraction with hypoxemia continue IV diuresis. continue Lasix to 80 bid Strict I's and O's continue Carvedilol Echo showing EF 20-25% with LVH and possible thrombus in RV vs vegetation Low-salt diet wean O2 down as tolerated cardiology consult, full anticoagulation, consider cardioversion # Acute kidney injury on CKD3 seems more of a new baseline Monitor I\O and BMP # chronic Atrial fibrillation Rate controlled at the time of admission On beta-violeta. switching to Eliquis DC ASA # Bilateral lower extremity venous stasis Consulting Wound Care Ammonium lactate lotion # black toe 4th Lt toe tip discoloration findings suggestive of chronic perfusion problem to LE Vascular consult , no acute vascular surgical intervention at this point. recommend follow up outpatient for further evaluation and treatment. DVT prophylaxis: Eliquis Full code. Discussed with patient at bedside Admit as inpatient and will require overnight minimum hospital stay for IV diuresis, monitoring of kidney function (as above), which is not possible in a lesser acute setting. Quality Stroke Does the patient have a stroke diagnosis?: No VTE Prior VTE?: No VTE Risk Level:: Medical - moderate - high VTE Device Contraindication: Treatment Not Indicated VTE Drug Contraindication: N/A - Med Ordered
[2024-11-27] MEDS: Azithromycin 500 MG in 0.9 % Sodium Chloride 250 ML 125 MG IV (14:19)
[2024-11-27] MEDS: cefTRIAXone sodium 1 GM VIAL IVPUSH (14:26)
--- NOTE | 2024-11-27 15:37 | P.PNCA_ITS ---
Subjective Subjective Date of Service: 11/27/24 Interval history: Seen examined at bedside. He has been diuresing better with the higher diuretic dose. Physical Exam Vital Signs: Last Vital Signs Temp 99.0 F 11/27/24 15:34 Pulse 97 11/27/24 15:34 Resp 16 11/27/24 15:34 BP 135/95 H 11/27/24 15:34 Pulse Ox 95 11/27/24 15:34 O2 Del Method Room Air 11/27/24 15:34 O2 Flow Rate 3 11/27/24 04:00 BMI result Body Mass Index 40.7 GENERAL APPEARANCE: Overweight, on supplemental oxygen, in no acute distress. NECK: no carotid bruit, mild JVD. SKIN: no suspicious lesions, warm and dry. HEART: no murmurs, irregular rate and rhythm. LUNGS: Clear to auscultation. ABDOMEN: soft, nontender. EXTREMITIES: + edema. He also has lymphedema. PERIPHERAL PULSES: equal. NEUROLOGIC: No gross deficits, AAO X 3 Objective Labs and Meds 11/26/24 09:18 11/27/24 06:19 Lab results: Laboratory Results - last 24 hr 11/27/24 06:19 Sodium 141 Potassium 3.8 Chloride 109 H Carbon Dioxide 24 Anion Gap 12 BUN 56 H Creatinine 1.56 H Estim Creat Clear Calc 63.6 Estimated GFR 45 Random Glucose 107 Calcium 8.6 B-Natriuretic Peptide 474 H Progress Note: A&P Assessment and plan (1) Atrial fibrillation: Status: Acute (2) Systolic heart failure: Status: Acute Plan [age] year gentleman with background of cardiomyopathy with severe LV dysfunction. This was diagnosed approximately 15 years ago when he was drinking heavily. He has been in atrial fibrillation and has been rate controlled previously. Continues to have LV dysfunction with EF 20 25%. There is also mild RV dysfunction. Tolerating losartan and spironolactone. Dose increased to 25 mg twice a day because potassium was little low. He is on Eliquis for anticoagulation. He follows up with [facility]. I think we will benefit from MADAY cardioversion as outpatient. I plan was to add amiodarone but he is currently getting azithromycin and I would avoid adding amiodarone currently. Thank you for allowing me to participate in the care of your patient. Please feel free to contact me if you have any questions. Time Spent With Patient Time: Total time managing care of this patient today ____ minutes. Progress Note: Quality Stroke Does the patient have a stroke diagnosis?: No Procedures Date of Service Date of Service: 11/27/24
--- NOTE | 2024-11-27 16:17 | MHC.CM.PN ---
EMR reviewed and per MD rounds, pt is not medically cleared for discharge, PT recommends home with services at discharge.
[2024-11-27] MEDS: Melatonin 3 MG TABLET 6 MG PO (20:56)
[2024-11-27] MEDS: Ammonium Lactate 12 % Lotion 226 GM BOTTLE 1 APPL TOPICAL (20:59)
[2024-11-28 03:03] VITALS: PULSE 92; RESP 18; TEMP 35.9; O2SAT 98
[2024-11-28 07:14] VITALS: BP 120/94; PULSE 80; RESP 20; TEMP 36.6; O2SAT 96
[2024-11-28 07:36] LABS: MANUAL DIFF FLAG NO
[2024-11-28 07:42] LABS: Basophils Absolute Auto 0.1 X10*3/uL (0.0-0.2); Basophils Percent Auto 0.5 % (0-2); Eosinophils Absolute Auto 0.3 X10*3/uL (0.0-0.4); Eosinophils Percent Auto 3.1 % (0-4); Hematocrit 49.6 % (42.0-52.0); Hemoglobin 16.6 g/dl (14.0-18.0); Imm Gran Abs Auto 0.03 X10*3/uL (0.00-0.03); Imm Gran Pct Auto 0.3 % (0.0-0.4); Lymphocytes Absolute Auto 1.9 X10*3/uL (1.2-4.9); Lymphocytes Percent Auto 19.7 % (20-40); Mean Corpuscular HGB Conc 33.5 g/dl (31.0-36.0); Mean Corpuscular Volume 89.7 fL (80.0-98.0); Mean Platelet Volume 10.7 fL (9.4-12.4); Monocytes Absolute Auto 1.1 X10*3/uL (0.1-1.2); Monocytes Percent Auto 11.9 % (2-11); Neutrophils Absolute Auto 6.2 x10*3/uL (2.0-8.3); Neutrophils Percent Auto 64.5 % (45-73); Platelet Count 189 X10*3/uL (160-400); Red Blood Count 5.53 X10*6/uL (4.60-5.80); Red Cell Distribution Width 14.6 % (11.0-16.0); White Blood Count 9.6 X10*3/uL (4.8-10.8)
[2024-11-28 08:02] LABS: Anion Gap 13 (12-20); Blood Urea Nitrogen 49 mg/dL (9-16); Carbon Dioxide 30 mmol/L (22-29); Chloride 103 mmol/L (96-108); Estimated Glomerular Filt Rate 53; Glucose Random 109 mg/dL (60-115); Potassium 3.8 mmol/L (3.3-5.1); Sodium 142 mmol/L (135-145)
[2024-11-28] MEDS: Apixaban 5 MG TABLET PO (08:06)
[2024-11-28] MEDS: Losartan Potassium 25 MG TABLET PO (08:06)
[2024-11-28] MEDS: guaiFENesin LA 600 MG TAB.ER.12H PO (08:06)
[2024-11-28] MEDS: Acetaminophen 325 MG TABLET 650 MG PO (08:07)
[2024-11-28] MEDS: 0.9 % Sodium Chloride Flush 3 ML SYRINGE IVFLUSH (08:07)
[2024-11-28] MEDS: Ammonium Lactate 12 % Lotion 226 GM BOTTLE 1 APPL TOPICAL (08:08)
[2024-11-28 08:54] LABS: B Type Natriuretic Peptide 570 pg/mL (<100)
--- NOTE | 2024-11-28 10:28 | MHC.CM.PN ---
Addendum entered by Senia Quintana RN 11/28/24 10:45: CLARIFICATION PT WILL HAVE PT AND SN Addendum entered by Senia Quintana RN 11/28/24 10:29: REF FAXED TO [place] [phone] Original Note: PER HOSPITALIST PT WILL BE MEDICALLY CLEARED W/[facility] FOR HOME PT, [facility] WILL TRANSPORT
[2024-11-28 11:27] VITALS: O2SAT 95
[2024-11-28 12:07] VITALS: BP 119/94; PULSE 77; RESP 18; TEMP 36.2; O2SAT 96
--- NOTE | 2024-11-28 12:43 | PM.DS ---
DS: Providers Provider Date of Service: 11/28/24 Date of admission: 11/24/24 00:33 Date of discharge: 11/28/24 Primary care physician: Sam Candelario NP Consults: 11/24/24 20:15 Consult to Cardiology Routine Consulting Provider: [facility] Reason for consultation: chf Has provider been notified: Yes 11/25/24 04:21 Consult to Wound Care Routine Reason for consultation: b/l lower leg venous stasis ulcers 11/26/24 11:41 Consult to Vascular Surgery Routine Consulting Provider: [facility] Reason for consultation: bilateral LE coldness, tip of 4th Lt toe blackish discoloration DS: Diagnosis Discharge Diagnosis (1) Atrial fibrillation: Status: Acute (2) Systolic heart failure: Status: Acute (3) Atrial fibrillation with controlled ventricular response: Status: Acute (4) Acute kidney injury: Status: Acute (5) Lymphedema: Status: Acute DS: Summary Hospital Course Hospital Course: Admission note HPI This is a 64-year-old male with pertinent history of congestive heart failure with reduced ejection fraction, AFib not on anticoagulation who presents to the emergency department for evaluation of dyspnea. Patient states he has had progressive dyspnea that has been ongoing for the last 1 week. Dyspnea is worse with exertion and worse when lying flat. Also reports PND. Patient also noticed that his bilateral lower extremity have been swollen. No cough, fever or chills. No chest pain or palpitations. No abdominal pain, changes in bowel habits. In the emergency department, BNP found to be elevated and imaging with cardiomegaly and opacities concerning for edema. Also found to have MODESTA with creatinine 1.83 Hospital course # Acute on chronic congestive heart failure with reduced ejection fraction with hypoxemia admitted for treatment with IV diuresis with IV Lasix of 40 then 80mg bid with good response as Strict I's and O's showed more than 7L negative balance. continued Carvedilol along with addition of Spironolactone (which the patient refused for prev side effects) and Losartan as Echo showing EF 20-25% with LVH and possible thrombus in RV vs vegetation. (blood culture was sent for completion per cardiology and pending at time of discharge). To continue with Low-salt diet. He was weaned O2 down as tolerated to room air. cardiology consulted and recommended full anticoagulation and to consider cardioversion as outpatient. He will follow with his [place] cardiology [place] [facility]. # Acute kidney injury on CKD3. seems likely a result of cardiorenal syndrome. improved with diuresis to 1.3. To repeat BMP as outpatient. # chronic Atrial fibrillation Rate controlled at the time of admission. On beta-violeta. switching to Eliquis . Discontinued ASA # Bilateral lower extremity venous stasis. 4th Lt toe tip discoloration Ammonium lactate lotion. findings suggestive of chronic perfusion problem to LE Vascular consult , no acute vascular surgical intervention at this point. recommend follow up outpatient for further evaluation and treatment. Wound care: alginate on weeping wounds only, 4x4, and Kerlix wrap, to be changed every 2 days. Discharge plan Continue Azithromycin and Ceftin for 1 more week Discontinue Aspirin, Start Eliquis two times a day Change Carvedilol to 25 mg twice a day Start Losartan 25 mg daily Start Eplerenone 25 mg daily Monitor weight at home Follow up with cardiology as outpatient for possible cardioversion Time Attestation Discharge Coordination Time (in mins): 45 Quality: Safe Use of Opioids Does Pt have an Active Cancer Diagnosis on the Problem List?: No Quality: Stroke Does the patient have a stroke diagnosis?: No Physical Exam Vital Signs: Vital Signs: Last Vital Signs Temp 97.1 F 11/28/24 12:07 Pulse 77 11/28/24 12:07 Resp 18 11/28/24 12:07 BP 119/94 H 11/28/24 12:07 Pulse Ox 96 11/28/24 12:07 O2 Del Method Room Air 11/28/24 12:07 O2 Flow Rate 3 11/28/24 03:03 BMI result Body Mass Index 40.7 Const: Other: Constitutional : Awake, interactive, not in distress Neck : Normal inspection, Supple Cardiovascular : RRR, elevated JVP, trace chronic bilateral lower extremity edema Respiratory : decreased bilateral air entry at bases, fine crackles Gastrointestinal: soft, lax, Normal bowel sounds, Non tender Skin : Warm, Dry with chronic dermatitis changes , dusky feet, tip of 4th Lt toe blackish discoloration, chronic wounds bilateral LE Neurological : Alert & oriented x3, No focal deficit DS: Data Data Completed and Pending Labs on day of discharge: Laboratory Results - last 24 hr 11/28/24 06:51 WBC 9.6 RBC 5.53 Hgb 16.6 Hct 49.6 MCV 89.7 MCH 30.0 MCHC 33.5 RDW 14.6 Plt Count 189 MPV 10.7 Immature Gran % (Auto) 0.3 Neut % (Auto) 64.5 Lymph % (Auto) 19.7 L Hawkins % (Auto) 11.9 H Eos % (Auto) 3.1 Baso % (Auto) 0.5 Lymph # (Auto) 1.9 Hawkins # (Auto) 1.1 Eos # (Auto) 0.3 Baso # (Auto) 0.1 Abs Immat Gran (auto) 0.03 Absolute Neuts (auto) 6.2 Absolute Nucleated RBC 0.000 Nucleated RBC % (auto) 0.0 Sodium 142 Potassium 3.8 Chloride 103 Carbon Dioxide 30 H Anion Gap 13 BUN 49 H Creatinine 1.34 Estim Creat Clear Calc 74.0 Estimated GFR 53 Random Glucose 109 Calcium 9.0 B-Natriuretic Peptide 570 H Imaging Chest x-ray: Radiologist's impression: ITS Impressions Venous Duplex 11/25/24 12:27 IMPRESSION: No acute deep venous thrombosis interrogated veins, bilateral lower extremities. Negative for DVT. Electronically signed by: Augusto Eddy MD 11/25/2024 01:09 PM EDT Discharge Plan Discharge Anticipated Discharge Date/Time: 11/28/24 12:16 Patient Disposition: Home Health Service Discharge Diagnosis: Heart failure with exacerbation Referrals: [facility] [Outside] - 1 Day Referral Note: [facility] Sam Candelario NP [Primary Care Provider, Internal Medicine] - 1 Week Discharge Medications: New ammonium lactate 12 % Lotion 1 appl topical BID Qty: 400 0RF Protocol: Apply to: Apply to: lower extremities bilaterally losartan 25 mg Tablet 25 mg PO DAILY Qty: 90 0RF Protocol: Hold for SBP< HOLD for SBP < : 90 Eliquis 5 mg Tablet 5 mg PO BID Qty: 180 0RF azithromycin 500 mg tablet 500 mg PO DAILY 3 Days Qty: 3 0RF cefuroxime axetil 500 mg tablet 500 mg PO BID Qty: 6 0RF eplerenone 25 mg tablet 25 mg PO DAILY Qty: 90 0RF Continued furosemide 40 mg Tablet 40 mg PO BID Changed carvedilol 12.5 mg Tablet 25 mg PO BID Qty: 120 0RF Rx Instructions: must administer with a meal/food Discontinued aspirin 81 mg Tablet 81 mg PO DAILY Discharge Orders: Discharge Order (Routine); Ordered 11/28/24 Ordered By: Pancho Wright Diet: Low salt diet Activity on Discharge: As tolerated Stand Alone Forms: Patient Portal Discharge page Print Language: [place] Other Ambulatory Orders: Basic Metabolic Panel (Routine) Timeframe: 1 Week Facility: [facility] - Location: Laboratory Ordered By: Pancho Wright Care Plan Goals: Continue Azithromycin and Ceftin for 1 more week Discontinue Aspirin, Start Eliquis two times a day Change Carvedilol to 25 mg twice a day Start Losartan 25 mg daily Start Eplerenone 25 mg daily Monitor weight at home Follow up with cardiology as outpatient for possible cardioversion Health Concerns: Heart failure Pneumonia Plan of Treatment: Losartan, Eplerenone and cardiology follow up Antibiotics Assessment: as above
--- NOTE | 2024-11-28 13:05 | W.MHC.F2F ---
Service Date Service Date: 11/28/24 Encounter Date of encounter: 11/28/24 Reasons for Services Signs and symptoms assessed: Lower extremities wound Heart failure Physical deconditioning Reason for residential: wound care (alginate on weeping wounds only, 4x4, and Kerlix wrap, to be changed every 2 days. ), medication management and teach disease management Reason for physical therapy: home safety and mobility and therapeutic exercises Homebound: Leaving the home is medically contraindicated at this time without the asist of a device and/or another person due th the listed conditions above and below. Reason homebound: unsteady gait / fall risk Certification: Based on the above findings, I certify that this patient is confined to the home and needs intermittent residential care, physical therapy and/or speech therapy, or continues to need occupational therapy. The patient is under my care, and I have initiated the establishment of the plan of care. The patient will be followed by a physician who will periodically review the plan of care. Time Spent With Patient Time: Total time managing care of this patient today ____ minutes.
[2024-11-28] MEDS: cefTRIAXone sodium 1 GM VIAL IVPUSH (14:03)
[2024-11-28] MEDS: Azithromycin 500 MG in 0.9 % Sodium Chloride 250 ML 125 MG IV (14:06)
== END 2024-11-28 16:44 | disposition home health service (06) | DRG 292 ==
LOC: HO.ED 11-24 00:19 → HO.EDOVER 11-24 00:37 → HO.IMC 11-24 21:46
PROVIDERS: Internal Medicine; Admitting Provider Student in an Organized Health Care Education/Training Program; Emergency Provider Internal Medicine; PCP Nurse Practitioner Family; Visit Provider Student in an Organized Health Care Education/Training Program
DX: I50.23 Acute on chronic systolic (congestive) heart failure (principal); I48.20 Chronic atrial fibrillation, unspecified; N17.9 Acute kidney failure, unspecified; Z68.41 Body mass index [BMI] 40.0-44.9, adult; N18.30 Chronic kidney disease, stage 3 unspecified; R09.02 Hypoxemia; I87.8 Other specified disorders of veins; D75.1 Secondary polycythemia; E66.01 Morbid (severe) obesity due to excess calories; Z71.3 Dietary counseling and surveillance; L89.890 Pressure ulcer of other site, unstageable; Z20.822 Contact with and (suspected) exposure to COVID-19; Z99.81 Dependence on supplemental oxygen; Z79.899 Other long term (current) drug therapy; Z95.810 Presence of automatic (implantable) cardiac defibrillator
CPT/HCPCS: 0241U; 36415; 71045; 80048; 80053; 82803; 83880; 84484; 85025; 85610; 87040; 93005; 93306; 93970; 94660; 97116; 97161; 99285; J0456; J0696; J1650; J1938; J2919; Q9957

== ENCOUNTER → 2024-11-23 21:55 | Outpatient (BNV) | payer OTHER, SELFPAY | PROVIDERS: Emergency Provider Internal Medicine; Visit Provider Radiology Diagnostic Radiology | DX: J98.4 Other disorders of lung (principal) | CPT/HCPCS: 71045 ==

== ENCOUNTER → 2024-11-23 21:56 | Outpatient (BNV) | payer OTHER, SELFPAY | PROVIDERS: Admitting Provider Student in an Organized Health Care Education/Training Program; Emergency Provider Internal Medicine; Visit Provider Internal Medicine Cardiovascular Disease | DX: I48.91 Unspecified atrial fibrillation (principal) | CPT/HCPCS: 93010 ==

== ENCOUNTER 2024-11-24 00:33 | Outpatient (BNV) | payer OTHER, SELFPAY | END 2024-11-24 18:52 | PROVIDERS: Admitting Provider Student in an Organized Health Care Education/Training Program; Emergency Provider Internal Medicine; Visit Provider Radiology Diagnostic Radiology | DX: R06.02 Shortness of breath (principal) | CPT/HCPCS: 71045 ==

== ENCOUNTER 2024-11-24 00:33 | Outpatient (BNV) | payer OTHER, SELFPAY | END 2024-11-25 12:27 | PROVIDERS: Admitting Provider Student in an Organized Health Care Education/Training Program; Emergency Provider Internal Medicine; Visit Provider Radiology Diagnostic Radiology | DX: R60.0 Localized edema (principal) | CPT/HCPCS: 93970 ==

== ENCOUNTER 2024-11-24 00:33 | Outpatient (BNV) | payer OTHER, SELFPAY | END 2024-11-25 07:00 | PROVIDERS: Admitting Provider Student in an Organized Health Care Education/Training Program; Emergency Provider Internal Medicine; PCP Nurse Practitioner Family; Visit Provider Internal Medicine Cardiovascular Disease | DX: I50.20 Unspecified systolic (congestive) heart failure (principal); I36.8 Other nonrheumatic tricuspid valve disorders; I51.7 Cardiomegaly | CPT/HCPCS: 93306 ==

== ENCOUNTER → 2024-11-24 00:33 | Outpatient (BNV) | payer OTHER, SELFPAY | PROVIDERS: Admitting Provider Student in an Organized Health Care Education/Training Program; Emergency Provider Internal Medicine; Visit Provider Internal Medicine Cardiovascular Disease | DX: I48.91 Unspecified atrial fibrillation (principal); I50.20 Unspecified systolic (congestive) heart failure | CPT/HCPCS: 99233 ==

== ENCOUNTER → 2024-11-24 00:33 | Outpatient (BNV) | payer OTHER, SELFPAY | PROVIDERS: Admitting Provider Student in an Organized Health Care Education/Training Program; Emergency Provider Internal Medicine; PCP Nurse Practitioner Family; Visit Provider Physician Assistant Surgical | DX: I89.0 Lymphedema, not elsewhere classified (principal) | CPT/HCPCS: 99222 ==

== ENCOUNTER → 2024-11-24 00:33 | Outpatient (BNV) | payer OTHER, SELFPAY | PROVIDERS: Admitting Provider Student in an Organized Health Care Education/Training Program; Emergency Provider Internal Medicine; Visit Provider Student in an Organized Health Care Education/Training Program | DX: I50.9 Heart failure, unspecified (principal); N17.9 Acute kidney failure, unspecified | CPT/HCPCS: 99223 ==

== ENCOUNTER 2024-12-10 13:58 | Outpatient (AMB) | payer OTHER, SELFPAY ==
--- OUTSIDE RECORDS SUMMARY | 2024-12-09 07:30 | XMS_ITS | Encounter Summary ---
Author Name [facility] [facility] [place] [facility] [facility] [place] Address [address] [place] [id number] Care Team Providers Care Mixing House Operator Name Role Phone SAM OATES Primary Care Provider Unavaila ble Insurance Providers: All historical and current Section Date Range: From patient's date of to the date document was created. This section includes the names of all active insurance providers for the patient. Insurance Provider Type of Coverage Plan Name Start of Policy Coverage End of Policy Coverage Group Number Member ID Insurance Provider's Telephone Number Policy Oconnell's Name Patient's Relationship to Policy Oconnell MEDICARE (WNR) MEDICARE (M) PART A Feb 11, 2016 PART A [id number] ENRIQUETA,CAR LTON PATIENT MEDICARE (WNR) MEDICARE (M) PART B Feb 11, 2016 PART B [id number] ENRIQUETA,CAR LTON PATIENT [facility] MEDICAID [facility] NNIAL CARE Nov 10, 2013 [facility] [id number] ENRIQUETA,CAR LTON PATIENT [facility] MEDICAID [facility] NNIAL CARE Nov 10, 2013 [id number] [phone] ENRIQUETA,CAR LTON PATIENT Selected Encounter This section includes the information on record at [place] for the Encounter. Date/Time Encounter Type Encounter Description Reason Provider Source Dec 09, 2024 11:30 AM OFFICE O/P EST HI 40 MIN PRIMARY CARE/MEDICINE ICD-10-CM I10 Essential (primary) hypertension OATES,WILL POPPY J [facility] Encounter Template Text not used by [place] Assessments - Encounter Diagnoses This section includes the primary and secondary diagnoses documented for the Encounter. Date/Time Primary/Secondary Diagnosis Diagnosis Name Provider Source Dec 09, 2024 12:06 PM PRIMARY Essential (primary) [facility] Dec 09, 2024 12:06 PM SECONDARY Cardiomyopathy, unspecified [facility] Dec 09, 2024 12:06 PM SECONDARY Heart failure, unspecified OATES,WILL [facility] Dec 09, 2024 12:06 PM SECONDARY Peripheral vascular disease, unspecified [facility] Dec 09, 2024 12:06 PM SECONDARY Unspecified atrial fibrillation OATES,WILL [facility] Plan of Treatment: Future Appointments (+ 6 months) and Future Tests (+/- 45 days) The Plan of Treatment section includes future care activities for the patient from all [facility]. This section includes future appointments and future orders which are active, pending or scheduled. Future Appointments This section includes appointments that were scheduled to occur 6 months from the date of the Encounter, up to a maximum of 20 appointments. The data comes from all [facility]. Appointment Date/Time Appointment Type Appointme nt Facility Name Dec 10, 2024 08:00 AM AMBULATORY - MEDICINE [facility] Mar 11, 2025 09:00 AM AMBULATORY - MEDICINE [facility] Active, Pending, and Scheduled Orders This section includes a listing of several types of active, pending, and scheduled orders, including clinic medications orders, diagnostic test orders, procedure orders and consult orders; where the start date of the order is 45 days before the date of the Encounter or 45 days after the date of theEncounter. The data comes from all [place] treatment [facility]. Test Date/Time Test Type Test Details Facility Name Nov 29, 2024 03:23 PM Consult Order [facility] SKILLED HOME CARE Cons Camera Person's Choice [facility] [place] [facility] Dec 09, 2024 11:58 AM Consult Order COMMUNITY CARE-VASCULAR SURGERY Cons Camera Person's Choice [facility] [place] [facility] Dec 09, 2024 11:58 AM Consult Order CARDIOLOGY ONE Cons Camera Person's Choice [place] [facility] [place] [facility] Lab Results: +/- 30 days of the encounter This section includes the Chemistry and Hematology Lab Results on record with [place] for the patient. Radiology Reports and Pathology Reports are provided separately, in subsequent sections. Lab Results This section contains the Chemistry/Hematology Results that were resulted 30 days before or 30 daysafter the date of the Encounter. Date/Time Source Result Type Result - Unit Interpretation Reference Range Specimen Type Comment Dec 09, 2024 12:06 PM [facility] [place] [facility] HEMOGLOBIN A1C PANEL BLOOD Specimen Type: BLOOD Comment: Values obtained from A1C measurements can vary. For atypical A1C assays, a reported value of 7.0 could actually be between 6.72 and 7.28 if measured by a reference method. A reported value of 9.0 could actually be between 8.73 and 9.27. Ref: http://www.ngsp .org/CAPdata.as p Ordering Provider: MANUEL OATES Report Released Date/Time: Dec 09, 2024 11:34 AM Reporting Lab: [facility] [place] [facility] [address] [facility] [address] Performing Lab: [facility] [place] [facility] [address] [facility] [address] HEMOGLOBIN A1C 6.2 H 4.0-5.6 Dec 09, 2024 12:06 PM [facility] TSH SERUM Specimen Type: SERUM No comment entered. Ordering Provider: SAM OATES Report Released Date/Time: Dec 09, 2024 11:34 AM Reporting Lab: [facility] [place] [facility] [address] [facility] [address] Performing Lab: [facility] [place] [facility] [address] [facility] [address] TSH 1.89 u[IU]/mL 0.35-4.94 Dec 09, 2024 12:06 PM [facility] PSA SERUM Specimen Type: SERUM No comment entered. Ordering Provider: SAM OATES Report Released Date/Time: Dec 09, 2024 11:34 AM Reporting Lab: [facility] [address] [facility] [address] Performing Lab: [facility] [address] [facility] [address] PSA 1.0 ng/mL 0-4 Dec 09, 2024 12:06 PM [facility] CBC BLOOD Specimen Type: BLOOD No comment entered. Ordering Provider: SAM OATES Report Released Date/Time: Dec 09, 2024 11:34 AM Reporting Lab: [facility] [address] [facility] [address] Performing Lab: [address] [address] WBC 7.92 10*3/uL 4.50-11.00 RBC 5.70 10*6/uL H 4.23-5.66 HGB 17.1 g/dL H 12.8-17 HCT 50.6 H 39.2-50.4 MCV 88.8 fL 82-99 MCHC 33.8 g/dL 30.8-35.1 PLT 184 10*3/uL 140-360 MPV 10.5 fL 9.2-12.4 RDW-CV 14.1 12.0-16.0 MCH 30.0 pg 26.2-32.6 Dec 09, 2024 12:06 PM [facility] LIPID PANEL, NON FASTING SERUM Specimen Type: SERUM No comment entered. Ordering Provider: SAM OATES Report Released Date/Time: Dec 09, 2024 11:34 AM Reporting Lab: [facility] [address] [facility] [address] Performing Lab: [address] [address] CHOLESTEROL 145 mg/dL TRIGLYCERIDE 74 mg/dL 0-150 LDL calculated 90 mg/dL 0-129 CHOL/HDL 3.6 HDL CHOLESTEROL 40 mg/dL >40 Dec 09, 2024 12:06 PM [facility] PT & INR (PROTIME) PLASMA Specimen Type: PLASM A No comment entered. Ordering Provider: SAM OATES Report Released Date/Time: Dec 09, 2024 11:34 AM Reporting Lab: [facility] [address] [facility] [address] Performing Lab: [address] [address] INR 1.3 PROTIME 14.3 s H 10.0-13.1 Dec 09, 2024 12:06 PM [facility] LIVER FUNCTION SERUM Specimen Type: SERUM No comment entered. Ordering Provider: SAM OATES Report Released Date/Time: Dec 09, 2024 11:34 AM Reporting Lab: [address] [address] Performing Lab: [address] [address] PROTEIN,TOTAL 7.3 g/dL 6.4-8.3 ALBUMIN 3.7 g/dL 3.2-4.6 ALKALINE PHOSPHATASE 76 U/L 40-150 AST 34 U/L 5-34 ALT 36 U/L 0-55 BILIRUBIN, TOTAL 1.7 mg/dL H 0.2-1.2 BILIRUBIN, DIRECT 0.6 mg/dL H 0-0.5 Dec 09, 2024 12:06 PM [facility] URIC ACID SERUM Specimen Type: SERUM No comment entered. Ordering Provider: SAM OATES Report Released Date/Time: Dec 09, 2024 11:52 AM Reporting Lab: [address] [address] Performing Lab: [address] [address] URIC ACID 11.9 mg/dL H 3.7-7.7 Dec 09, 2024 12:06 PM [facility] BASIC METABOLIC PANEL (non-fasting) SERUM Spe cimen Type: SERUM No comment entered. Ordering Provider: SAM OATES Report Released Date/Time: Dec 09, 2024 11:34 AM Reporting Lab: [facility] [address] [facility] [address] Performing Lab: [place] [facility] [address] [facility] [facility] [address] UREA NITROGEN 24 mg/dL 8-26 GLUCOSE 101 mg/dL H 65-100 SODIUM 139 mmol/L 136-145 POTASSIUM 4.2 mmol/L 3.5-5.1 CHLORIDE 103 mmol/L 98-107 CO2 27 meq/L 23-31 CALCIUM 8.4 mg/dL L 8.8-10 CREATININE, Serum 1.33 mg/dL H 0.72-1.25 eGFR(CKD-EPI 2020) 59 mL/min L >60 Vital Signs: All taken on the encounter date This section contains inpatient and outpatient Vital Signs collected on the date of the Encounter. Date/Time Temperature Pulse Blood Pressure Respiratory Rate SP02 Pain Height Weight Body Mass Index Source Dec 09, 2024 12:04 PM 134/76 mm[Hg] [place] [facility] Dec 09, 2024 11:17 AM 97.3 F 83 /min 133/92 mm[Hg] 20 /min 95 % 2 70 in 272 lb 39 [facility] Social History: Smoking Status (Most current) and Tobacco Use (All prior to encounter date) This section includes the most current, and the historical, smoking and tobacco- related health factors from the [place] facility where the Encounter took place. Current Smoking Status This section includes the most current smoking, or tobacco-related health factor, from the [place] facility where the Encounter took place. Date/Time Current Smoking Status Comment Bladimir patel Aug 09, 2023 10:00 AM VA-TOBACCO NEVER USED [facility] Tobacco Use History This section includes a history of the smoking, or tobacco-related health factors, that were collected on or before the date of the Encounter. The data comes from the [place] facility where the Encounter took place. Date/Time Smoking Status/Tobacco Use Comment F maribel Aug 26, 2022 09:35 AM VA-TOBACCO NEVER USED [facility] Jun 02, 2021 01:30 PM VA-TOBACCO NEVER USED [facility] [place] [facility] Jun 01, 2020 03:08 PM VA-TOBACCO NEVER USED [facility] [place] [facility] Nov 29, 2018 10:51 AM VA-TOBACCO NEVER USED [facility] [place] [facility] Apr 02, 2018 10:20 AM VA-TOBACCO NEVER USED [facility] [place] [facility] Apr 17, 2017 02:10 PM LIFETIME NON-TOBACCO USER [facility] [place] [facility] Feb 12, 2016 01:00 PM LIFETIME NON-TOBACCO USER [facility] [place] [facility] Encounter Notes: All associated encounter notes This section contains the clinical notes associated to the Encounter. Date/Time Encounter Note(s) Provider Source Dec 09, 2024 11:58 AM PRIMARY CARE NURSE PRACTITIONER OUTPATIENT NOTE: LOCAL TITLE: NURSE PRACTITIONER OUTPATIENT NOTE STANDARD TITLE: PRIMARY CARE NURSE PRACTITIONER OUTPATIENT NOTE DATE OF NOTE: DEC 09, 2024@11:58 ENTRY DATE: DEC 09, 2024@11:58:38 AUTHOR: SAM OATES COSIGNER: URGENCY: STATUS: COMPLETED Chief complaint: Patient is a 64 year old [place]. HPI: Pleasant male here for post hospital [place] [facility] Admit: 11/24/24 D/C: 11/28/24 Hospital course: This is a 64-year-old male with pertinent history of congestive heart failure with reduced ejection fraction, AFib not on anticoagulation who presents to the emergency department for ev aluation of dyspnea. Patient states he has had progressive dyspnea that has been ongoing for the last 1 week. Dyspnea is worse with exertion and worse when lying flat. Also reports PND. Patient also noticed that his bilateral lower extremity have been swollen. No cough, fever or chills. No chest pain or palpitations. No abdominal pain, changes in bowel habits. In the emergency department, BNP found to be elevated and imaging with cardiomegaly and opacities concerning for edema. Also found to have MODESTA with creatinine 1.83 # Acute on chronic congestive heart failure with reduced ejection fraction with hypoxemia admitted for treatment with IV diuresis with IV Lasix of 40 then 80mg bid with good response as Strict I's and O's showed more than 7L negative balance. continued Carvedilol along with addition of Spironolactone (which the patient refused for prev side effects) and Losartan as Echo showing EF 20-25% with LVH and possible thrombus in RV vs vegetation. (blood culture was sent for completion per cardiology and pending at time of discharge). To continue with Low-salt diet. He was weaned 02 down as tolerated to room air. cardiology consulted and recommended full anticoagulation and to consider cardioversion as outpatient. He will follow with his [place] cardiology vs [facility] cardiology. # Acute kidney injury on CKD3. seems likely a result of cardiorenal syndrome. improved with diuresis to 1.3. To repeat BMP as outpatient. # Chronic Atrial flbrlllatl on Rate controlled at the time of admission. on beta-violeta. switching to Eliquis . Discontinued ASA # Bilateral lower extremity venous stasis. 4th Lt toe tip discoloration Ammonium lactate lotion. findings suggestive of chronic perfusion problem to LE. Vascular consult , no acute vascular surgical intervention at this point. recommend follow up outpatient for further evaluation and treatment. Wound care: alginate on weeping wounds only, 4x4, and Kerlix wrap, to be changed every 2 days. Medications: Ammonium lactate 12% lotion topically twice daily to lower ext bilat Losartan 25mg daily Apixaban 5mg twice daily Azithromycin 500mg daily for 3 days Cefuroxime 500mg twice daily for 3 days Eplerenone 25mg daily Furosemide 40mg twice daily Carvedilol 12.5mg, two tabs twice daily Discontinued: Aspirin Discharge plan: Continue Azithromycin and Ceftin for 1 more week Discontinue Aspirin, Start Eliquis two times a day Change Carvedilol to 25 mg twice a day Start Losartan 25 mg daily Start Eplerenone 25 mg daily Monitor weight at home Follow up with cardiology as outpatient for possible cardioversion D/C home with VNA Repeat BMP in one week Allergies: LISINOPRIL The following VA and Non-VA meds were reconciled with patient. The patient was educated on the use of the medications including indication and side effects. Active and Recently Outpatient Medications (excluding Supplies): Active Outpatient Medications Status 1) NAPROXEN 500MG TAB TAKE ONE TABLET BY MOUTH EVERY 12 HOURS ACTIVE NEEDED TAKE WITH FOOD Indication: FOR PAIN Pending Outpatient Medications Status 1) ALLOPURINOL 300MG TAB TAKE ONE-HALF TABLET BY MOUTH ONCE PENDING DAILY Indication: FOR GOUT 2) AMMONIUM LACTATE 12% LOTION APPLY MODERATE AMOUNT TOPICALLY PENDING TWICE DAILY FOR DRY IRRITATED SKIN Indication: FOR DRY SKIN 3) CARVEDILOL 25MG TAB TAKE ONE TABLET BY MOUTH TWICE DAILY PENDING Indication: FOR HIGH BLOOD PRESSURE 4) EPLERENONE 25MG TAB TAKE ONE TABLET BY MOUTH ONCE DAILY PENDING Indication: FOR HEART FAILURE AFTER A HEART ATTACK 5) FUROSEMIDE 40MG TAB TAKE ONE TABLET BY MOUTH TWICE DAILY TO PENDING REMOVE FLUID/CONTROL BLOOD PRESSURE Indication: FOR HIGH BLOOD PRESSURE 6) LOSARTAN 25MG TAB TAKE ONE TABLET BY MOUTH ONCE DAILY FOR PENDING BLOOD PRESSURE/HEART Indication: FOR HIGH BLOOD PRESSURE 7 Total Medications Review of Systems: Constitutional: (-)for Fevers, chills, weakness, nights sweats On examination: 97.3 F [36.3 C] (12/09/2024 11:17)133/92 (12/09/2024 11:17)83 (12/09/2024 11:17)20 (12/09/2024 11:17)2 (12/09/2024 11:17)BMI: 39.1272 lb [123.38 kg] (12/09/2024 11:17) [place] is alert and oriented X3 Cardiovasc: 2plus carotids without bruits, no JVD Heart Reguler rate and rhythm NL S1S2 no S3 or murmur Respiration: Normal respiratory effort, lungs clear ABD: Benign normal active bowel sounds no HSM no rebound or referred pain EXT: 2+ edema, some erythema, no overt signs of infection, +cms. All diagnostics from past month were reviewed with patient. Assessment/plan: Active problems - Computerized Problem List is the source for the followin. afib - lengthy discussion on recommendation to stop ASA and start eliquis, he adamantly refusing to do this, sts he bled too much in the past with eliquis, we discussed CV risks, he acknowledges these and despite declines eliquis and insists on continuing daily ASA. 2. chf - reviewed medications, ordered. Consult placed for cardiology. 3. PVD - he was on antibiotics while in the hospital. He has not been on any since discharge. I do not see any overt signs of infection and he has vascular appt tomorrow so i will hold off on ordering. This was explained to the . 4. MODESTA - labs today. Today I spent 45 minutes on some or all of the following: chart review, history, physical examination, treatment planning, education and counseling of the patient/family/caregivers non medical, placing orders, communicating with other health care providers, completing health and wellness screenings (see below) and documentation in the electronic health record. Follow up visit in 3 mos. Medication Reconciliation: Outpatient: Has the patient been taking medications as documented in the EMLR? YES: The patient has been taking medications as documented in the EMLR. Essential Medication List for Review used to complete this medication reconciliation. INCLUDED IN THIS LIST: Alphabetical list of active outpatient prescriptions dispensed from this [facility] (local) and dispensed from another [place] or [facility] facility (remote) as well as inpatient orders (local, pending and active), local clinic medications, locally documented non-VA medications, and local prescriptions that have or been discontinued in the past 90 days. - All changes in medications, including all non-VA/Herbal/OTC medications were entered into CPRS. - If there were any medications the patient should no longer take, they were discontinued. - The patient/caregiver was instructed to update this list, discard old lists, and take this list to the next appointment, whether with a VA or non-VA provider. HTN Assess for Elevated BP>=140/90: Repeat blood pressure: 134/76 The patient's blood pressure is usually adequately controlled. No medication changes are indicated at this time. /veronica/ Sam Oates DNP, AGRICULTURAL ENGINEER-BC, CNL Primary Care Nurse Practitioner Signed: 12/09/2024 12:04 SAM OATES [facility] Dec 09, 2024 11:24 AM PREVENTIVE MEDICINE NURSING NOTE: LOCAL TITLE: CLINICAL REMINDERS/NURSING STANDARD TITLE: PREVENTIVE MEDICINE NURSING NOTE DATE OF NOTE: DEC 09, 2024@11:24 ENTRY DATE: DEC 09, 2024@11:24:13 AUTHOR: COLE ALMAZAN COSIGNER: URGENCY: STATUS: COMPLETED Advance Directive Screen MH AD: Patient does not have an Advance Directive completed and is requesting more information. A consult was sent to Social Work Services at this visit so that an appointment can be made with the patient to review the advance directive. The patient received education about Advance Directives and written notification of his/her rights. Alcohol Use Screen (AUDIT-C): Alcohol Screen: SCREEN FOR ALCOHOL (AUDIT-C) An alcohol screening test (AUDIT-C) was negative (score=1). 1. How often did you have a drink containing alcohol in the past year? Consider a drink to be a 12 ounce can or bottle of regular beer, 8 ounces of malt liquor, a 5 ounce glass of table wine, or a 1.5 ounce shot of liquor (like scotch, gin, or vodka). Monthly or less 2. How many drinks containing alcohol did you have on a typical day when you were drinking in the past year? One or two drinks 3. How often did you have six or more drinks on one occasion in the past year? Never /veronica/ Cole [facility] Dictaphone Typist HEAD OF MOBILE,PRIMARY CARE Signed: 12/09/2024 11:25 COLE ALMAZAN [facility]
--- NOTE | 2024-12-10 14:07 | MHC.OFFVIS ---
Intake Visit Reasons: Hospital follow up wound toe Intake Note: Patient presents for follow up toe wound. Patient states his left foot is extremely swollen and black on the bottom. Pain is a 4 constantly. Patient has tingling as well in both legs. Accompanied by: Self / Same As Patient Allergies No Known Allergies (No Known Allergies*) Allergy (Verified 12/10/24 14:09) HPI HPI Hospital follow up wound toe: Details: Maurice is presenting today on a follow up to hospital admission due to bilateral lower extremity swelling and a toe wound. He states he has been doing ok at home. He states that he was discharged home with instructions for use of ammonium lactate daily with alternating wrapping of his legs; he states that he feels that the ammonium lactate is making the skin on his right lower extremity slough off and become more moist. He states that the toe wound has not changed. [facility] Medical History Lymphedema Atrial fibrillation with controlled ventricular response Congestive heart failure Atrial fibrillation Systolic heart failure Social History Household Members: Significant Other Housing: House Alcohol intake: current Alcohol intake frequency: holidays/special occasions only Alcohol type: beer Patient Tobacco Use Status: Never used Tobacco service: Yes Review of Systems Const Reports as per HPI and Denies weakness ENT Reports Normal hearing present and Denies dizziness Card Reports as per HPI, Denies chest pain, Denies chest pain at rest, Denies chest pain with activity, Denies dyspnea and Denies dyspnea on exertion Resp Reports as per HPI, Denies cough, Denies dyspnea and Denies dyspnea on exertion GI Reports as per HPI, Denies abdominal pain, Denies nausea and Denies vomiting Musc Denies numbness Skin/Breast Reports as per HPI, Denies erythema and Denies wounds Neuro Reports Normal hearing present, Denies dizziness, Denies numbness, Denies Sensory deficit (Neuro) and Denies weakness Psych Reports no additional complaints Endo Reports no additional complaints Physical Exam Const General: healthy appearing and no acute distress Orientation/consciousness: patient oriented x3 HEENT Head: Yes normal to inspection Ears: hearing grossly normal bilaterally Mouth: Normal oral and palatal mucosa present Resp Effort & Inspection: normal respiratory effort and able to speak in complete sentences Auscultation: clear to auscultation bilaterally Cardio Jugular venous distension: no JVD Rate: regular rate Rhythm: regular rhythm Heart sounds: S1 normal heart sound present and S2 normal heart sound present Bruits: no abdominal aortic bruits, no carotid bruits, no femoral bruits and no renal bruits Peripheral pulses: Peripheral pulses 2+ throughout GI Inspection: Yes normal to inspection Palpation (GI): No Abdominal aortic bruit present Skin General skin exam: no rashes or lesions noted Wounds: no wounds Hair: normal Neuro General: patient oriented x3 Cranial nerves: Yes Normal hearing present Cognition (Neuro): normal cognition Gait exam (Neuro): Normal gait present Motor exam (neuro): 5/5 motor strength present throughout Sensory Exam: No Sensory deficit (Neuro) Extrem Other: Bilateral lower extremities: +3 pitting edema noted. Faint but palpable DP pulses, difficult to find due to edema. Feet and legs warm to the touch. Hyperkeratosis and hyperplasia noted. Deep erythematous discoloration noted from just below the knee to the tips of the toes. Right lower extremity: 4 small wounds noted, on the anterior tibial area, the medial ankle, and 2 on the medial aspect of the calf. Small amount of clear fluid weeping from all the wounds. Left lower extremity: 4 small open wounds noted, on the anterior tibial area, the lateral silveira mid-calf, and 2 on the medial aspect of the lower calf. Small amount of clear fluid weeping from all the wounds. Left 4th toe wound: dry eschar noted on the tip of the toe; easily removed in the office. No erythema or bleeding noted under the scab. CEAP: C - 4 E - primary A - superficial P - reflux General: Yes normal to inspection, Yes full ROM, Yes capillary refill normal and Yes normal gait Assessment & Plan Assessment & Plan (1) Varicose veins of both lower extremities with inflammation: Code(s): I83.11 - Varicose veins of right lower extremity with inflammation; I83.12 - Varicose veins of left lower extremity with inflammation Category: Medical Plan: Maurice is presenting today for a hospital follow up; left toe wound. The toe wound was completely scabbed over and the scab was easily removed with no wound/erythema/bleeding noted underneath. Due to the swelling, discoloration, and weeping, he likely has some element of lymphedema and venous insufficiency. We will rule him out for venous insufficiency prior to discussing attending our lymphedema clinic. I did have a discussion about lymphedema and the pathophysiology. I did discuss with him that if the ammonium lactate is making the skin on his legs slough off/cause increased weeping, we recommend not using it daily but to wrap his legs daily if possible. In short, the patient has evidence of venous insufficiency. I have discussed the pathophysiology with the patient. In addition I have provided informational material regarding venous disease to the patient. We have discussed conservative measures including compression, elevation, and exercise. I have taken the liberty of ordering venous insufficiency testing with the patient. They will follow up with me after testing. The patient had an opportunity to ask questions regarding the treatment plan. All questions were answered. Imaging studies, laboratory studies and physical exam results were discussed and reviewed in detail. No major barriers to understanding were identified. The patient expressed understanding and agreement with the above treatment plan. The patient is aware they should contact our office by phone for worsening of the current condition or the appearance of new symptoms. Thank you for allowing me to participate in the vascular care of this patient. If you have any questions or concerns regarding the treatment for the above condition please do not hesitate to contact me. The office telephone contact is [phone]. This note is constructed using voice recognition software. While every effort has been made to ensure accuracy, puppet maker errors may have been included. Thank you for allowing me to participate in the care of your patient. Yours sincerely, CODY West Orders: Orders US venous duplex LE BI 1 Week I83.11 - Varicose veins of right lower extremity with inflammation, I83.12 - Varicose veins of left lower extremity with inflammation Coding Level of Care Code Est Pt Level 4 (08200) Diagnoses Varicose veins of both lower extremities with inflammation I83.11; I83.12
== END 2024-12-10 14:25 | disposition home or self-care (01) ==
LOC: HO.HVS 13:59
PROVIDERS: PCP Nurse Practitioner Family; Visit Provider Physician Assistant Surgical
DX: I83.11 Varicose veins of right lower extremity with inflammation (principal); I83.12 Varicose veins of left lower extremity with inflammation
CPT/HCPCS: 99214

== ENCOUNTER → 2024-12-10 13:58 | Outpatient (BNVA) | payer OTHER, SELFPAY | PROVIDERS: PCP Nurse Practitioner Family; Visit Provider Physician Assistant Surgical | DX: I83.11 Varicose veins of right lower extremity with inflammation (principal); I83.12 Varicose veins of left lower extremity with inflammation | CPT/HCPCS: 99212 ==

== ENCOUNTER 2025-01-16 13:47 | Outpatient (REF) | payer OTHER, SELFPAY ==
--- NOTE | ~2025-01-16 | US_ITS ---
EXAMINATION: US LOWER EXTREMITY VENOUS (REFLUX EXAM), BILATERAL CLINICAL INFORMATION: Varices. COMPARISON: None. TECHNIQUE: Color flow triplex imaging and compression Doppler was performed to evaluate both the deep and the superficial systems bilaterally. To evaluate the superficial system, the examination was performed in the upright position. Color-flow Doppler ultrasound and compression ultrasound were utilized. In addition, maneuvers were utilized to demonstrate reflux. FINDINGS: 1. DEEP VENOUS ULTRASOUND OF THE RIGHT LOWER EXTREMITY: Common Femoral Vein: Compressible, normal respiratory variation and augmented flow. Femoral Vein: Compressible, normal color flow and augmentation. Popliteal Vein: Compressible, normal augmentation. Deep Reflux: There is no evidence of reflux in the deep system in either the common femoral vein, superficial femoral or the popliteal vein. There is no evidence of a Waters's cyst. 2. SUPERFICIAL ULTRASOUND WITH DOPPLER OF RIGHT LOWER EXTREMITY: GREAT SAPHENOUS VEIN: Saphenofemoral Junction: 1.0 cm; Reflux: 0 ms Proximal Thigh: 0.5 cm; Reflux: 0 ms Mid Thigh: 0.6 cm; Reflux: 0 ms Distal Thigh: 0.8 cm; Reflux: 0 ms At Knee: 0.6 cm; Reflux: 0 ms Proximal Calf: 0.7 cm; Reflux: 0 ms Mid Calf: 0.5 cm; Reflux: 1068 ms Distal Calf: 0.7 cm; Reflux: 0 ms DUPLICATED MEDIAL GREAT SAPHENOUS VEIN: Diameter: None imaged Reflux: NA DUPLICATED LATERAL GREAT SAPHENOUS VEIN: Diameter: 0.5 cm. Reflux: NA SMALL SAPHENOUS VEIN: Saphenopopliteal Junction: 0.4 cm; Reflux: 0 ms Proximal: 0.6 cm; Reflux: 0 ms Distal: 0.5 cm; Reflux: 0 ms VEIN OF GIACOMINI: Size: NA Reflux: NA PERFORATORS: Location: Small saphenous vein, mid segment. Proximal thigh and distal calf. Size: 0.2-0.4 cm. Reflux: NA VARICOSITIES: Location: Proximal calf. Small saphenous vein, distal segment. Accessory saphenous vein proximal and lateral aspect. Mid thigh. From the knee to the mid calf. Size: 0.3-0.5 cm. Reflux: 1552 ms, proximal calf. 3. DEEP VENOUS ULTRASOUND OF THE LEFT LOWER EXTREMITY: Common Femoral Vein: Compressible, normal respiratory variation and augmented flow. Femoral Vein: Compressible, normal color flow and augmentation. Popliteal Vein: Compressible, normal augmentation. Deep Reflux: There is no evidence of reflux in the deep system in either the common femoral vein, superficial femoral or the popliteal vein. There is no evidence of a Waters's cyst. 4. SUPERFICIAL ULTRASOUND WITH DOPPLER OF LEFT LOWER EXTREMITY: GREAT SAPHENOUS VEIN: Saphenofemoral Junction: 0.9 cm; Reflux: 0 ms Proximal Thigh: 1.0 cm; Reflux: 0 ms Mid Thigh: 0.7 cm; Reflux: 0 ms Distal Thigh: 0.6 cm; Reflux: 0 ms At Knee: 0.7 cm; Reflux: 0 ms Proximal Calf: 0.9 cm; Reflux: 0 ms Mid Calf: 0.5 cm; Reflux: 0 ms Distal Calf: 0.6 cm; Reflux: 0 ms DUPLICATED MEDIAL GREAT SAPHENOUS VEIN: Diameter: None imaged Reflux: NA DUPLICATED LATERAL GREAT SAPHENOUS VEIN: Diameter: None imaged. Reflux: NA SMALL SAPHENOUS VEIN: Saphenopopliteal Junction: 0.4 cm; Reflux: 0 ms Proximal: 0.5 cm; Reflux: 0 ms Distal: 0.5 cm; Reflux: 0 ms VEIN OF GIACOMINI: Size: NA Reflux: NA PERFORATORS: Location: None imaged Size: NA Reflux: NA VARICOSITIES: Location: Mid thigh. At the knee and proximal calf. Size: 0.4-0.7 cm. Reflux: NA US/US venous duplex LE BI IMPRESSION: Right: Venous insufficiency, great saphenous vein at the mid calf. Varices with reflux in the proximal calf. Perforators without reflux. Left: No venous insufficiency. Varices without reflux, mid thigh and from the mid to proximal calf. Electronically signed by: Augusto Eddy MD 01/16/2025 03:35 PM EDT
--- OUTSIDE RECORDS SUMMARY | 2025-01-16 13:51 | XMS_ITS | Encounter Summary ---
Author Organization [facility] Address [address] [place] [address] Phone Care Team Providers Care Trade Embalmer Name Role Phone Sam Candelario NP Primary Care Provide r Encounter Details Date Type Department Care Team (Late st Contact Info) Description 12/27/2024 Orders Only [facility] [address] [facility] [address], [address] [place] [address] Provider, MD Dodie [facility] [place] [address] Social History Tobacco Use Types Packs/Day Years Used Date Smoking Tobacco: Never Smokeless Tobacco: Never Home Health Assessment: Transportation Answer Date Recorded Lack of Transportation (Medical) No 12/06/2024 Lack of Transportation (Non-Medical) No 12/06/2024 Patient Unable or Declines to Respond No 12/06/2024 Education Answer Date Recorded Are you interested in more education? Not on chiquis e 01/12/2023 Are you concerned about learning? Not on file 01/12/2023 No 01/12/2023 No 01/12/2023 Digital Access Answer Date Recorded No 01/12/2023 No 01/12/2023 Reliable internet access at home? Not on file 01/12/2023 Device with a working camera? Not on file Sex and Gender Information Value Date Recorded Sex Assigned at Not on file Legal Sex Male 9:49 PM EDT Gender Identity Not on file Sexual Orientation Not on file documented as of this encounter Plan of Treatment Not on file documented as of this encounter Procedures Procedure Name Priority Date/Time Associated Diagnosis Comments OUTSIDE EP STUDY Routine 11/02/2024 2:55 PM EDT documented in this encounter Results * Outside EP Study Report Only (11/02/2024 2:55 PM EDT) us Historical Provider CV ELECTROPHYSIOLOGY ELAN BARRETO Final Result documented in this encounter Visit Diagnoses Not on filedocumented in this encounter Care Teams Trade Embalmer Relationship Specialty Start Date End Date Sam Candelario NP [address] [place] [address] PCP - General Nurse Practitioner 01/16/23 documented as of this encounter Additional Source Comments The information contained in this document represents components of the legal health record. It is not the complete legal health record.[facility]
== END 2025-01-16 13:48 | disposition home or self-care (01) ==
LOC: HO.US 13:47
PROVIDERS: PCP Nurse Practitioner Family; Visit Provider Physician Assistant Surgical
DX: I83.11 Varicose veins of right lower extremity with inflammation (principal); I83.12 Varicose veins of left lower extremity with inflammation
CPT/HCPCS: 93970

== ENCOUNTER → 2025-01-16 13:48 | Outpatient (BNV) | payer OTHER, SELFPAY | PROVIDERS: PCP Nurse Practitioner Family; Visit Provider Radiology Diagnostic Radiology | DX: I83.812 Varicose veins of left lower extremity with pain (principal) | CPT/HCPCS: 93970 ==